=== PATIENT | female | born 1945 | race American Indian/Alaskan Native ===

== ENCOUNTER 2021-01-30 01:57 | Observation (INO) | payer MEDICARE ==
[2021-01-30] MEDS ORDERED: NALOXONE 0.4 MG/1 ML INJ IV PRN (02:06)
[2021-01-30] MEDS ORDERED: LACTATED RINGERS 1,000 ML IV ONE ×3 (02:07→04:10)
--- NOTE | 2021-01-30 02:08 | Emergency Department Report ---
ED General Adult HPI - General Chief complaint: Weakness Stated complaint: AMS PUI?: No Time Seen by Provider: 01/30/21 02:05 Source: patient, family, EMS (Verbal report received from emergency medical services. EMS documentation not available at time of chart dictation ), RN notes reviewed, old records reviewed Mode of arrival: Stretcher Limitations: Altered Mental Status, Physical Limitation - History of Present Illness Initial comments: The patient was evaluated in the emergency department for symptoms described in the history of present illness. He/she was evaluated in the context of the global COVID-19 pandemic, which necessitated consideration that the patient might be at risk for infection with the virus that causes COVID-19. Institutional protocols and algorithms that pertain to the evaluation of patients at risk for COVID-19 are in a state of rapid change based on information released by regulatory bodies including the CDC and federal and state organizations. These policies and algorithms were followed during the patient's care in the emergency department. Please note that these policies, procedures and recommendations changed on a rapid basis. Primary CARE doctor: Dr. Hernández This is a 75-year-old female. She has a known history of abdominal AAA, stroke, hypertension, BMI 33, question dementia. She is brought to the hospital today by emergency medical services. History initially obtained from EMS. EMS states that they were called for possible overdose on narcotics. They report that the patient was found at home, confused, with shallow breathing, and pinpoint pupils. EMS reportedly gave the patient Narcan, which improved her mental status. EMS reports that the patient had low blood pressure in the field. In the emergency room, the patient is awake to name, pleasant, and denies physical pain. Her family endorses that she has been having some diarrhea over the past few days. Family states no recent antibiotic use. Family is in agreement that the patient is confused more so than baseline. The patient herself endorses no complaints, therefore, she does not describe qualitative nature of symptoms, exacerbating factors, relieving factors, or aggravating factors. Patient initially had low blood pressure while here in the emergency room, received almost 3 L of lactated Ringer's, and her blood pressure improved. -: Gradual, days(s) Radiation: other Quality: other Consistency: other Improves with: other Worsens with: other Associated Symptoms: other - Related Data Home Medications Medication Instructions Recorded Confirmed Last Taken Allopurinol 1 tab PO BID 03/01/16 01/30/21 Unknown Cholecalciferol Vit D3 [Vitamin D3 1,000 unit PO QDAY 03/01/16 01/30/21 Unknown 1,000 UNIT TAB] Folic Acid [Folvite] 1 mg PO QDAY 03/01/16 01/30/21 Unknown Losartan [Cozaar] 25 mg PO QDAY 03/01/16 01/30/21 Unknown Metoprolol [Lopressor TAB] 75 mg PO BID 03/01/16 01/30/21 Unknown Simvastatin 1 tab PO QHS 03/01/16 01/30/21 Unknown Spironolactone [Aldactone] 25 mg PO QDAY 03/01/16 01/30/21 Unknown Apixaban [Eliquis] 5 mg PO QDAY 01/30/21 01/30/21 Unknown Furosemide [Lasix TAB] 40 mg PO 2XW 01/30/21 01/30/21 Unknown Pregabalin 200 mg PO QHS 01/30/21 01/30/21 Unknown Terazosin HCl 10 mg PO QHS 01/30/21 01/30/21 Unknown Previous Rx's Medication Instructions Recorded Last Taken Type Albuterol Sulfate [Ventolin HFA] 2 puff IH Q4HR PRN #1 hfa.aer.ad 03/02/16 Unknown Rx Allergies Allergy/AdvReac Type Severity Reaction Status Date / Time Sulfa (Sulfonamide Allergy Nausea Verified 02/29/16 21:57 Antibiotics) ED Review of Systems ROS: Stated complaint: AMS Other details as noted in HPI Comment: All other systems reviewed and negative (Patient denies all complaints.) Constitutional: denies: fever Gastrointestinal: diarrhea Neurological: confusion ED Past Medical Hx - Past Medical History Hx Hypertension: Yes Hx Renal Disease: Yes Hx Asthma: Yes Additional medical history: kidney disease, sciatic nerve pain - Surgical History Additional Surgical History: hysterectomy-1974 - Social History Smoking Status: Never Smoker - Medications Home Medications: Home Medications Medication Instructions Recorded Confirmed Last Taken Type Allopurinol 1 tab PO BID 03/01/16 01/30/21 Unknown History Cholecalciferol Vit D3 [Vitamin D3 1,000 unit PO QDAY 03/01/16 01/30/21 Unknown History 1,000 UNIT TAB] Folic Acid [Folvite] 1 mg PO QDAY 03/01/16 01/30/21 Unknown History Losartan [Cozaar] 25 mg PO QDAY 03/01/16 01/30/21 Unknown History Metoprolol [Lopressor TAB] 75 mg PO BID 03/01/16 01/30/21 Unknown History Simvastatin 1 tab PO QHS 03/01/16 01/30/21 Unknown History Spironolactone [Aldactone] 25 mg PO QDAY 03/01/16 01/30/21 Unknown History Albuterol Sulfate [Ventolin HFA] 2 puff IH Q4HR PRN #1 hfa.aer.ad 03/02/16 Unknown Rx Apixaban [Eliquis] 5 mg PO QDAY 01/30/21 01/30/21 Unknown History Furosemide [Lasix TAB] 40 mg PO 2XW 01/30/21 01/30/21 Unknown History Pregabalin 200 mg PO QHS 01/30/21 01/30/21 Unknown History Terazosin HCl 10 mg PO QHS 01/30/21 01/30/21 Unknown History ED Physical Exam - General Limitations: Other (Dementia, poor historian) General appearance: alert, obese - Head Head exam: Present: atraumatic, normocephalic - Eye Eye exam: Present: normal appearance, EOMI. Absent: nystagmus - ENT ENT exam: Present: normal exam, normal orophraynx, mucous membranes moist, normal external ear exam - Neck Neck exam: Present: normal inspection, full ROM. Absent: tenderness, meningismus - Respiratory Respiratory exam: Present: normal lung sounds bilaterally. Absent: respiratory distress, wheezes, rales, rhonchi, stridor, decreased breath sounds - Cardiovascular Cardiovascular Exam: Present: regular rate, normal rhythm, normal heart sounds. Absent: bradycardia, tachycardia, irregular rhythm, systolic murmur, diastolic murmur, rubs, gallop - GI/Abdominal GI/Abdominal exam: Present: soft. Absent: distended, tenderness, guarding, rebound, rigid, pulsatile mass - Rectal Rectal exam: Present: normal inspection, normal rectal tone, heme (-) stool, other (Chaperoned by nurse Zaira Jean Baptiste). Absent: heme (+) stool, black stool, bloody stool, fecal impaction, hemorrhoids - Extremities Exam Extremities exam: Present: normal inspection, full ROM, other (2+ pulses noted in the bilateral upper and lower extremities. There is no palpable cord. negative Homans sign. Muscular compartments are soft. The pelvis is stable.). Absent: pedal edema, calf tenderness - Back Exam Back exam: Present: normal inspection. Absent: tenderness, CVA tenderness (R), CVA tenderness (L), paraspinal tenderness, vertebral tenderness - Neurological Exam Neurological exam: Present: altered (Patient is alert to name and location. Patient is forgetful.), other (No facial droop. Tongue midline. Extraocular movements intact bilaterally. Facial sensation intact to light touch in V1, V2, V3 distribution bilaterally. 5 and a 5 strength in 4 extremities. Sensation intact to light touch in 4 extremities.) - Psychiatric Psychiatric exam: Present: normal affect, normal mood - Skin Skin exam: Present: warm, dry, intact, normal color. Absent: rash ED Course Vital Signs 01/30/21 01/30/21 01/30/21 02:00 02:06 02:10 Temperature 98 F Pulse Rate 74 Respiratory 12 Rate Blood Pressure 65/39 O2 Sat by Pulse 94 98 93 Oximetry 01/30/21 01/30/21 01/30/21 02:16 02:30 02:46 Temperature Pulse Rate 73 74 74 Respiratory 13 15 14 Rate Blood Pressure 65/39 72/48 77/38 O2 Sat by Pulse 94 96 96 Oximetry 01/30/21 01/30/21 01/30/21 03:26 03:37 03:45 Temperature Pulse Rate 71 70 69 Respiratory 11 L 16 16 Rate Blood Pressure 72/42 77/38 78/54 O2 Sat by Pulse 99 100 98 Oximetry 01/30/21 01/30/21 01/30/21 04:00 04:15 04:30 Temperature Pulse Rate 68 69 68 Respiratory 15 16 14 Rate Blood Pressure 86/54 110/61 101/55 O2 Sat by Pulse 100 99 99 Oximetry ED Medical Decision Making - Lab Data Result diagrams: 01/30/21 02:25 01/30/21 02:25 Vital Signs 01/30/21 01/30/21 01/30/21 02:00 02:06 02:10 Temperature 98 F Pulse Rate 74 Respiratory 12 Rate Blood Pressure 65/39 O2 Sat by Pulse 94 98 93 Oximetry 01/30/21 01/30/21 01/30/21 02:16 02:30 02:46 Temperature Pulse Rate 73 74 74 Respiratory 13 15 14 Rate Blood Pressure 65/39 72/48 77/38 O2 Sat by Pulse 94 96 96 Oximetry 01/30/21 01/30/21 01/30/21 03:26 03:37 03:45 Temperature Pulse Rate 71 70 69 Respiratory 11 L 16 16 Rate Blood Pressure 72/42 77/38 78/54 O2 Sat by Pulse 99 100 98 Oximetry 01/30/21 01/30/21 01/30/21 04:00 04:15 04:30 Temperature Pulse Rate 68 69 68 Respiratory 15 16 14 Rate Blood Pressure 86/54 110/61 101/55 O2 Sat by Pulse 100 99 99 Oximetry Lab Results 01/30/21 01/30/21 01/30/21 Range/Units 02:25 02:25 02:25 WBC 5.6 (4.5-11.0) K/mm3 RBC 3.95 (3.65-5.03) M/mm3 Hgb 12.4 (10.1-14.3) gm/dl Hct 37.8 (30.3-42.9) % MCV 96 (79-97) fl MCH 31 (28-32) pg MCHC 33 (30-34) % RDW 14.1 (13.2-15.2) % Plt Count 177 (140-440) K/mm3 Lymph % (Auto) 56.3 H (13.4-35.0) % [place] % (Auto) 4.9 (0.0-7.3) % Eos % (Auto) 2.0 (0.0-4.3) % Baso % (Auto) 0.1 (0.0-1.8) % Lymph # (Auto) 3.1 (1.2-5.4) K/mm3 [place] # (Auto) 0.3 (0.0-0.8) K/mm3 Eos # (Auto) 0.1 (0.0-0.4) K/mm3 Baso # (Auto) 0.0 (0.0-0.1) K/mm3 Seg Neutrophils % 36.7 L (40.0-70.0) % Seg Neutrophils # 2.0 (1.8-7.7) K/mm3 PT 14.0 (12.2-14.9) Sec. INR 1.10 (0.87-1.13) APTT 26.3 (24.2-36.6) Sec. Sodium 132 L (137-145) mmol/L Potassium 4.9 (3.6-5.0) mmol/L Chloride 101.3 (98-107) mmol/L Carbon Dioxide 23 (22-30) mmol/L Anion Gap 13 mmol/L BUN 41 H (7-17) mg/dL Creatinine 2.5 H (0.6-1.2) mg/dL Estimated GFR 23 ml/min BUN/Creatinine Ratio 16 % Glucose 151 H (65-100) mg/dL Lactic Acid (0.7-2.0) mmol/L Calcium 8.7 (8.4-10.2) mg/dL Total Bilirubin 0.40 (0.1-1.2) mg/dL AST 20 (5-40) units/L ALT 20 (7-56) units/L Alkaline Phosphatase 79 (35-129) units/L Ammonia (25-60) umol/L Total Creatine Kinase 132 (30-135) units/L Troponin T < 0.010 (0.00-0.029) ng/mL Total Protein 8.8 H (6.3-8.2) g/dL Albumin 3.6 L (3.9-5) g/dL Albumin/Globulin Ratio 0.7 % TSH (0.270-4.200) mlU/mL Urine Color (Yellow) Urine Turbidity (Clear) Urine pH (5.0-7.0) Ur Specific [place] (1.003-1.030) Urine Protein (Negative) mg/dL Urine Glucose (UA) (Negative) mg/dL Urine Ketones (Negative) mg/dL Urine Blood (Negative) Urine Nitrite (Negative) Urine Bilirubin (Negative) Urine Urobilinogen (<2.0) mg/dL Ur Leukocyte Esterase (Negative) Urine WBC (Auto) (0.0-6.0) /HPF Urine RBC (Auto) (0.0-6.0) /HPF U Epithel Cells (Auto) (0-13.0) /HPF Urine WBC Clumps /HPF Urine Mucus /HPF Salicylates (2.8-20.0) mg/dL Urine Opiates Screen Urine Methadone Screen Acetaminophen (10.0-30.0) ug/mL Ur Barbiturates Screen Ur Phencyclidine Scrn Ur Amphetamines Screen U Benzodiazepines Scrn Urine Cocaine Screen U Marijuana (THC) Screen Drugs of Abuse Note Plasma/Serum Alcohol (0-0.07) % 01/30/21 01/30/21 01/30/21 Range/Units 02:25 02:25 02:25 WBC (4.5-11.0) K/mm3 RBC (3.65-5.03) M/mm3 Hgb (10.1-14.3) gm/dl Hct (30.3-42.9) % MCV (79-97) fl MCH (28-32) pg MCHC (30-34) % RDW (13.2-15.2) % Plt Count (140-440) K/mm3 Lymph % (Auto) (13.4-35.0) % [place] % (Auto) (0.0-7.3) % Eos % (Auto) (0.0-4.3) % Baso % (Auto) (0.0-1.8) % Lymph # (Auto) (1.2-5.4) K/mm3 [place] # (Auto) (0.0-0.8) K/mm3 Eos # (Auto) (0.0-0.4) K/mm3 Baso # (Auto) (0.0-0.1) K/mm3 Seg Neutrophils % (40.0-70.0) % Seg Neutrophils # (1.8-7.7) K/mm3 PT (12.2-14.9) Sec. INR (0.87-1.13) APTT (24.2-36.6) Sec. Sodium (137-145) mmol/L Potassium (3.6-5.0) mmol/L Chloride (98-107) mmol/L Carbon Dioxide (22-30) mmol/L Anion Gap mmol/L BUN (7-17) mg/dL Creatinine (0.6-1.2) mg/dL Estimated GFR ml/min BUN/Creatinine Ratio % Glucose (65-100) mg/dL Lactic Acid 1.80 (0.7-2.0) mmol/L Calcium (8.4-10.2) mg/dL Total Bilirubin (0.1-1.2) mg/dL AST (5-40) units/L ALT (7-56) units/L Alkaline Phosphatase (35-129) units/L Ammonia 21.0 L (25-60) umol/L Total Creatine Kinase (30-135) units/L Troponin T (0.00-0.029) ng/mL Total Protein (6.3-8.2) g/dL Albumin (3.9-5) g/dL Albumin/Globulin Ratio % TSH 2.590 (0.270-4.200) mlU/mL Urine Color (Yellow) Urine Turbidity (Clear) Urine pH (5.0-7.0) Ur Specific [place] (1.003-1.030) Urine Protein (Negative) mg/dL Urine Glucose (UA) (Negative) mg/dL Urine Ketones (Negative) mg/dL Urine Blood (Negative) Urine Nitrite (Negative) Urine Bilirubin (Negative) Urine Urobilinogen (<2.0) mg/dL Ur Leukocyte Esterase (Negative) Urine WBC (Auto) (0.0-6.0) /HPF Urine RBC (Auto) (0.0-6.0) /HPF U Epithel Cells (Auto) (0-13.0) /HPF Urine WBC Clumps /HPF Urine Mucus /HPF Salicylates (2.8-20.0) mg/dL Urine Opiates Screen Urine Methadone Screen Acetaminophen (10.0-30.0) ug/mL Ur Barbiturates Screen Ur Phencyclidine Scrn Ur Amphetamines Screen U Benzodiazepines Scrn Urine Cocaine Screen U Marijuana (THC) Screen Drugs of Abuse Note Plasma/Serum Alcohol (0-0.07) % 01/30/21 01/30/21 01/30/21 Range/Units 02:25 02:25 02:25 WBC (4.5-11.0) K/mm3 RBC (3.65-5.03) M/mm3 Hgb (10.1-14.3) gm/dl Hct (30.3-42.9) % MCV (79-97) fl MCH (28-32) pg MCHC (30-34) % RDW (13.2-15.2) % Plt Count (140-440) K/mm3 Lymph % (Auto) (13.4-35.0) % [place] % (Auto) (0.0-7.3) % Eos % (Auto) (0.0-4.3) % Baso % (Auto) (0.0-1.8) % Lymph # (Auto) (1.2-5.4) K/mm3 [place] # (Auto) (0.0-0.8) K/mm3 Eos # (Auto) (0.0-0.4) K/mm3 Baso # (Auto) (0.0-0.1) K/mm3 Seg Neutrophils % (40.0-70.0) % Seg Neutrophils # (1.8-7.7) K/mm3 PT (12.2-14.9) Sec. INR (0.87-1.13) APTT (24.2-36.6) Sec. Sodium (137-145) mmol/L Potassium (3.6-5.0) mmol/L Chloride (98-107) mmol/L Carbon Dioxide (22-30) mmol/L Anion Gap mmol/L BUN (7-17) mg/dL Creatinine (0.6-1.2) mg/dL Estimated GFR ml/min BUN/Creatinine Ratio % Glucose (65-100) mg/dL Lactic Acid (0.7-2.0) mmol/L Calcium (8.4-10.2) mg/dL Total Bilirubin (0.1-1.2) mg/dL AST (5-40) units/L ALT (7-56) units/L Alkaline Phosphatase (35-129) units/L Ammonia (25-60) umol/L Total Creatine Kinase (30-135) units/L Troponin T (0.00-0.029) ng/mL Total Protein (6.3-8.2) g/dL Albumin (3.9-5) g/dL Albumin/Globulin Ratio % TSH (0.270-4.200) mlU/mL Urine Color (Yellow) Urine Turbidity (Clear) Urine pH (5.0-7.0) Ur Specific [place] (1.003-1.030) Urine Protein (Negative) mg/dL Urine Glucose (UA) (Negative) mg/dL Urine Ketones (Negative) mg/dL Urine Blood (Negative) Urine Nitrite (Negative) Urine Bilirubin (Negative) Urine Urobilinogen (<2.0) mg/dL Ur Leukocyte Esterase (Negative) Urine WBC (Auto) (0.0-6.0) /HPF Urine RBC (Auto) (0.0-6.0) /HPF U Epithel Cells (Auto) (0-13.0) /HPF Urine WBC Clumps /HPF Urine Mucus /HPF Salicylates < 0.3 L (2.8-20.0) mg/dL Urine Opiates Screen Urine Methadone Screen Acetaminophen 5.0 L (10.0-30.0) ug/mL Ur Barbiturates Screen Ur Phencyclidine Scrn Ur Amphetamines Screen U Benzodiazepines Scrn Urine Cocaine Screen U Marijuana (THC) Screen Drugs of Abuse Note Plasma/Serum Alcohol < 0.01 (0-0.07) % 01/30/21 01/30/21 Range/Units 04:15 04:15 WBC (4.5-11.0) K/mm3 RBC (3.65-5.03) M/mm3 Hgb (10.1-14.3) gm/dl Hct (30.3-42.9) % MCV (79-97) fl MCH (28-32) pg MCHC (30-34) % RDW (13.2-15.2) % Plt Count (140-440) K/mm3 Lymph % (Auto) (13.4-35.0) % [place] % (Auto) (0.0-7.3) % Eos % (Auto) (0.0-4.3) % Baso % (Auto) (0.0-1.8) % Lymph # (Auto) (1.2-5.4) K/mm3 [place] # (Auto) (0.0-0.8) K/mm3 Eos # (Auto) (0.0-0.4) K/mm3 Baso # (Auto) (0.0-0.1) K/mm3 Seg Neutrophils % (40.0-70.0) % Seg Neutrophils # (1.8-7.7) K/mm3 PT (12.2-14.9) Sec. INR (0.87-1.13) APTT (24.2-36.6) Sec. Sodium (137-145) mmol/L Potassium (3.6-5.0) mmol/L Chloride (98-107) mmol/L Carbon Dioxide (22-30) mmol/L Anion Gap mmol/L BUN (7-17) mg/dL Creatinine (0.6-1.2) mg/dL Estimated GFR ml/min BUN/Creatinine Ratio % Glucose (65-100) mg/dL Lactic Acid (0.7-2.0) mmol/L Calcium (8.4-10.2) mg/dL Total Bilirubin (0.1-1.2) mg/dL AST (5-40) units/L ALT (7-56) units/L Alkaline Phosphatase (35-129) units/L Ammonia (25-60) umol/L Total Creatine Kinase (30-135) units/L Troponin T (0.00-0.029) ng/mL Total Protein (6.3-8.2) g/dL Albumin (3.9-5) g/dL Albumin/Globulin Ratio % TSH (0.270-4.200) mlU/mL Urine Color Yellow (Yellow) Urine Turbidity Turbid (Clear) Urine pH 5.0 (5.0-7.0) Ur Specific [place] 1.016 (1.003-1.030) Urine Protein <15 mg/dl (Negative) mg/dL Urine Glucose (UA) Neg (Negative) mg/dL Urine Ketones Neg (Negative) mg/dL Urine Blood Neg (Negative) Urine Nitrite Neg (Negative) Urine Bilirubin Neg (Negative) Urine Urobilinogen < 2.0 (<2.0) mg/dL Ur Leukocyte Esterase Neg (Negative) Urine WBC (Auto) 43.0 H (0.0-6.0) /HPF Urine RBC (Auto) > 182.0 (0.0-6.0) /HPF U Epithel Cells (Auto) 29.0 H (0-13.0) /HPF Urine WBC Clumps 2+ /HPF Urine Mucus Few /HPF Salicylates (2.8-20.0) mg/dL Urine Opiates Screen Negative Urine Methadone Screen Negative Acetaminophen (10.0-30.0) ug/mL Ur Barbiturates Screen Negative Ur Phencyclidine Scrn Negative Ur Amphetamines Screen Negative U Benzodiazepines Scrn Negative Urine Cocaine Screen Negative U Marijuana (THC) Screen Negative Drugs of Abuse Note Disclamer Plasma/Serum Alcohol (0-0.07) % - EKG Data -: EKG Interpreted by [place] EKG shows normal: sinus rhythm Rate: normal - EKG Data 01/30/21 05:19 EKG interpreted at 2: 19 Sinus rhythm, 73 bpm. Normal axis, QTC 467 ms, Q waves noted in the inferior leads. This is an abnormal EKG. This is not a STEMI. No prior for comparison at this time. - Radiology Data Radiology results: report reviewed, image reviewed [facility] [address] [place] [address] Cat Scan Report Signed Patient: REYNALDO WILLIS MR#: [id number] : 1945 Acct:[id number] Age/Sex: 75 / F ADM Date: 01/30/21 Loc: ED Attending Dr: Kaylie ramos Physician: AMADA MARTINES MD Date of Service: 01/30/21 Procedure(s): CT head/brain wo con Accession Number(s): [id number] cc: AMADA MARTINES MD CT HEAD WITHOUT CONTRAST INDICATION / CLINICAL INFORMATION: Altered Mental Status. TECHNIQUE: All CT scans at this location are performed using CT dose reduction for ALARA by means of automated exposure control. COMPARISON: None available. FINDINGS: HEMORRHAGE: None. EXTRA-AXIAL SPACES: Mildly prominent likely related to cortical atrophy. VENTRICULAR SYSTEM: Mildly enlarged likely related to central atrophy. CEREBRAL PARENCHYMA: Mild small vessel ischemic changes in the right gangliocapsular region are of uncertain age. No evidence of major vessel occlusion. MIDLINE SHIFT / HERNIATION: None. CEREBELLUM / BRAINSTEM: No significant abnormality. ORBITS: Normal as visualized. SOFT TISSUES: No significant abnormality. SKULL: No significant abnormality. PARANASAL SINUSES / MASTOID AIR CELLS: Normal as visualized. ADDITIONAL FINDINGS: None. IMPRESSION: Mild small vessel ischemic changes in the right gangliocapsular region are of uncertain age. Signer Name: Huber Ellington MD Signed: 01/30/2021 3:22 AM Workstation Name: [id number] Transcribed By: RT Dictated By: Huber Ellington MD Electronically Authenticated By: Huber Ellington MD Signed Date/Time: 01/30/21321 DD/ 9 [facility] [address] [place] [address] Cat Scan Report Signed Patient: REYNALDO WILLIS MR#: [id number] : 1945 Acct:[id number] Age/Sex: 75 / F ADM Date: 01/30/21 Loc: ED Attending Dr: Ordering Physician: AMADA MARTINES MD Date of Service: 01/30/21 Procedure(s): CT abdomen pelvis wo con Accession Number(s): [id number] cc: AMADA MARTINES MD CT OF THE ABDOMEN AND PELVIS WITHOUT CONTRAST INDICATION / CLINICAL INFORMATION: Hypotension; Possible AAA vs Retroperitoneal Hematoma. TECHNIQUE: All CT scans at this location are performed using CT dose reduction for ALARA by means of automated exposure control. COMPARISON: None available. FINDINGS: ABDOMEN: There are moderate atherosclerotic calcifications involving the abdominal aorta. There is a 3.3 cm infrarenal AAA without acute complication. I see no evidence of retroperitoneal hematoma. There is benign-appearing low density nodularity/hyperplasia involving both adrenal glands. The liver, spleen, gallbla dder, bile ducts, pancreas, kidneys and bowel demonstrate no acute abnormality. There is a 2.9 cm spiculated mass in the posterior aspect of the left lower lobe of the lung which abuts the pleura. PELVIS: There is a Bashir catheter in a collapsed urinary bladder. The distal ureters are normal. The uterus and ovaries are not identified. There are multiple left colonic diverticula without acute inflammation. A normal appendix is present. I do not identify a hernia. There are moderate degenerative changes at the lumbosacral junction. IMPRESSION: 1. 3.3 cm infrarenal AAA without acute complication. No evidence of retroperitoneal hematoma. 2. Diverticulosis without CT evidence of acute diverticulitis. 3. 2.9 cm spiculated mass in the left lower lobe is characteristic of primary bronchogenic carcinoma. PET imaging/biopsy may be helpful in further evaluation. Signer Name: Huber Ellington MD Signed: 01/30/2021 3:32 AM Workstation Name: [id number] Transcribed By: RT Dictated By: Huber Ellington MD Electronically Authenticated By: Huber Ellington MD Signed Date/Time: 01/30/21331 DD/ 5 [facility] [address] [place] [address] XRay Report Signed Patient: REYNALDO WILLIS MR#: [id number] : 1945 Acct:[id number] Age/Sex: 75 / F ADM Date: 01/30/21 Loc: ED Attending Dr: Ordering Physician: AMADA MARTINES MD Date of Service: 01/30/21 Procedure(s): XR chest 1V ap Accession Number(s): [id number] cc: AMADA MARTINES MD Fluoro Time In Minutes: CHEST 1 VIEW 01/30/2021 1:35 AM INDICATION / CLINICAL INFORMATION: Altered Mental Status. COMPARISON: None available. FINDINGS: SUPPORT DEVICES: None. HEART / MEDIASTINUM: The heart size and pulmonary vasculature are normal. There is mild aortic tortuosity without aneurysm. LUNGS / PLEURA: No significant pulmonary or pleural abnormality. No pneumothorax. ADDITIONAL FINDINGS: No significant additional findings. IMPRESSION: No acute findings. Signer Name: Huber Ellington MD Signed: 01/30/2021 2:37 AM Workstation Name: [id number] Transcribed By: RT Dictated By: Huber Ellington MD Electronically Authenticated By: Huber Ellington MD Signed Date/T chong: 01/30/21 0237 - Medical Decision Making Differential diagnosis, including but not limited to: Urinary tract infection, pneumonia, dehydration, renal insufficiency, prerenal azotemia, known AAA, retroperitoneal hemorrhage, intracranial hemorrhage, stroke, dementia, deconditioning, toxic encephalopathy, metabolic encephalopathy, deconditioning Assessment and plan: 75-year-old female who was initially hypotensive, awake to name, follows commands, protecting her airway, in no acute distress, not hypoxic, found to have renal insufficiency. Given hypotension, Bashir catheter was placed for urine output measurement. She will be treated empirically with fluids and ceftriaxone. I have contacted her family, and they are amenable to admission and hospitalization. A noncontrast CT scan of the abdomen pelvis showed no acute findings. She has a known chronic AAA. Incidental lung abnormality reviewed and appreciated, not emergent, we will defer to the inpatient team to further manage and follow-up of incidental nonemergent findings. Family amenable to admission and hospitalization. Hospital physician, Dr. Omid Martins to admit Critical Care Time: No Critical care attestation.: If time is entered above; I have spent that time in minutes in the direct care of this critically ill patient, excluding procedure time. ED Disposition Clinical Impression: NAZ (acute kidney injury), Acute encephalopathy, Weakness, History of diarrhea, UTI (urinary tract infection), Dementia, AAA (abdominal aortic aneurysm) Hypotension Qualifiers: Hypotension type: unspecified hypotension type Qualified Code(s): I95.9 - Hypotension, unspecified Disposition: OP ADMIT IP TO THIS HOSP Is pt being admited?: Yes Does the pt Need Aspirin: No Condition: Fair Referrals: PRIMARY CARE, [Referring] - 3-5 Days
--- NOTE | 2021-01-30 02:42 | XRay Report ---
CHEST 1 VIEW 01/30/2021 1:35 AM INDICATION / CLINICAL INFORMATION: Altered Mental Status. COMPARISON: None available. FINDINGS: SUPPORT DEVICES: None. HEART / MEDIASTINUM: The heart size and pulmonary vasculature are normal. There is mild aortic tortuo sity without aneurysm. LUNGS / PLEURA: No significant pulmonary or pleural abnormality. No pneumothorax. ADDITIONAL FINDINGS: No significant additional findings. IMPRESSION: No acute findings. Signer Name: Huber Ellington MD Signed: 01/30/2021 2:37 AM Workstation Name: [id number]
--- NOTE | 2021-01-30 03:26 | Cat Scan Report ---
CT HEAD WITHOUT CONTRAST INDICATION / CLINICAL INFORMATION: Altered Mental Status. TECHNIQUE: All CT scans at this location are performed using CT dose reduction for ALARA by means of automated exposure control. COMPARISON: None available. FINDINGS: HEMORRHAGE: None. EXTRA-AXIAL SPACES: Mildly prominent likely related to cortical atrophy. VENTRICULAR SYSTEM: Mildly enlarged likely related to central atrophy. CEREBRAL PARENCHYMA: Mild small vessel ischemic changes in the right gangliocapsular region are of un certain age. No evidence of major vessel occlusion. MIDLINE SHIFT / HERNIATION: None. CEREBELLUM / BRAINSTEM: No significant abnormality. ORBITS: Normal as visualized. SOFT TISSUES: No significant abnormality. SKULL: No significant abnormality. PARANASAL SINUSES / MASTOID AIR CELLS: Normal as visualized. ADDITIONAL FINDINGS: None. IMPRESSION: Mild small vessel ischemic changes in the right gangliocapsular region are of uncertain a ge. Signer Name: Huber Ellington MD Signed: 01/30/2021 3:22 AM Workstation Name: [id number]
[2021-01-30 03:27] LABS: Hematocrit 37.8 % (30.3-42.9); Hemoglobin 12.4 gm/dl (10.1-14.3); Mean Corpuscular HGB Conc 33 % (30-34); Mean Corpuscular Volume 96 fl (79-97); Platelet Count 177 K/mm3 (140-440); Red Blood Count 3.95 M/mm3 (3.65-5.03); Red Cell Distribution Width 14.1 % (13.2-15.2)
--- NOTE | 2021-01-30 03:36 | Cat Scan Report ---
CT OF THE ABDOMEN AND PELVIS WITHOUT CONTRAST INDICATION / CLINICAL INFORMATION: Hypotension; Possible AAA vs Retroperitoneal Hematoma. TECHNIQUE: All CT scans at this location are performed using CT dose reduction for ALARA by means of automated exposure control. COMPARISON: None available. FINDINGS: ABDOMEN: There are moderate atherosclerotic calcifications involving the abdominal aorta. There is a 3.3 cm infrarenal AAA without acute complication. I see no evidence of retroperitoneal hematoma. There is benign-appearing low density nodularity/hyperplasia involving both adrenal glands. The liver , spleen, gallbladder, bile ducts, pancreas, kidneys and bowel demonstrate no acute abnormality. There is a 2.9 cm spiculated mass in the posterior aspect of the left lower lobe of the lung which ab uts the pleura. PELVIS: There is a Bashir catheter in a collapsed urinary bladder. The distal ureters are normal. The uterus and ovaries are not identified. There are multiple left colonic diverticula without acute infl ammation. A normal appendix is present. I do not identify a hernia. There are moderate degenerative c hanges at the lumbosacral junction. IMPRESSION: 1. 3.3 cm infrarenal AAA without acute complication. No evidence of retroperitoneal hematoma. 2. Diverticulosis without CT evidence of acute diverticulitis. 3. 2.9 cm spiculated mass in the left lower lobe is characteristic of primary bronchogenic carcinoma. PET imaging/biopsy may be helpful in further evaluation. Signer Name: Huber Ellington MD Signed: 01/30/2021 3:32 AM Workstation Name: [id number]
[2021-01-30 03:40] LABS: INR 1.1 (0.87-1.13); Partial Thromboplastin Time 26.3 Sec. (24.2-36.6)
[2021-01-30 03:44] LABS: Basophils % (Auto) 0.1 % (0.0-1.8); Lymphocytes % (Auto) 56.3 % (13.4-35.0); Monocytes % (Auto) 4.9 % (0.0-7.3)
[2021-01-30 03:45] LABS: Eosinophils # (Auto) 0.1 K/mm3 (0.0-0.4); Lymphocytes # (Auto) 3.1 K/mm3 (1.2-5.4); Monocytes # (Auto) 0.3 K/mm3 (0.0-0.8)
[2021-01-30 04:34] LABS: Amphetamine Screen,Urine Negative; Benzodiazepines Screen,Urine Negative; Bilirubin,Urine NEG (Negative); Blood,Urine NEG (Negative); Cannabinoid Screen,Urine Negative; Cocaine Screen,Urine Negative; Color,Urine Yellow (Yellow); Methadone Screen,Urine Negative; Mucus,Urine FEW /HPF; Opiate Screen,Urine Negative; Protein,Urine <15 mg/dL mg/dL (Negative); Urobilinogen,Urine < 2.0 mg/dL (<2.0)
[2021-01-30 04:36] LABS: RBC,Urine > 182.0 /HPF (0.0-6.0)
[2021-01-30 04:38] LABS: Alanine Aminotransferase 20 units/L (7-56); Albumin 3.6 g/dL (3.9-5); BUN/Creatinine Ratio 16; Blood Urea Nitrogen 41 mg/dL (7-17); Calcium 8.7 mg/dL (8.4-10.2); Hemolysis Index 1
[2021-01-30] MEDS ORDERED: cefTRIAXone/NS 1 GM/50 ML 1 GM/50 ML BAG IV ONE (04:52)
[2021-01-30] MEDS ORDERED: ASPIRIN 81 MG TAB CHEW PO ONE (05:16)
[2021-01-30] MEDS ORDERED: ACETAMINOPHEN 325 MG TAB PO PRN (05:56)
[2021-01-30] MEDS ORDERED: MORPHINE 2 MG/1 ML INJ IV PRN (05:56)
[2021-01-30] MEDS ORDERED: ONDANSETRON 4 MG/2 ML INJ IV PRN (05:56)
[2021-01-30] MEDS ORDERED: MAGNESIUM HYDROXIDE (MOM) ORAL LIQD UDC PO PRN (05:56)
--- NOTE | 2021-01-30 06:17 | History and Physical Report ---
History of Present Illness Date of examination: 01/30/21 Date of admission: 01/30/21 05:22 Chief complaint: Altered mental status History of present illness: 75-year-old -Bul[place]ian female with known history of hypertension, dementia and history of CVA in the past was brought into the emergency room by EMS for altered mental status. Patient's family was said to have called EMS because the thought patient may have overdosed on narcotic medication. Patient was given Narcan by EMS with some improvement in her mental status. She however had some low blood pressure prior to being brought to the hospital. According to family, patient has been having diarrhea over the past few days.. No history of fever or chills, no chest pain, no shortness of breath, no nausea vomiting and no abdominal pain. No hematuria or dysuria. No history of any sick contacts or recent travel. No history of contact with anyone with COVID-19. Patient denies any recent intake of antibiotics. She became more alert upon arrival in the emergency room. Work-up in the emergency room reveals urinary tract infection, acute kidney injury. Past History Past Medical History: hypertension, renal failure (Chronic kidney failure), other (Asthma, sciatic nerve pain) Past Surgical History: hysterectomy (In 1974) Social history: no significant social history Family history: no significant family history Medications and Allergies Allergies Allergy/AdvReac Type Severity Reaction Status Date / Time Sulfa (Sulfonamide Allergy Nausea Verified 02/29/16 21:57 Antibiotics) Home Medications Medication Instructions Recorded Confirmed Last Taken Type Allopurinol 1 tab PO BID 03/01/16 01/30/21 Unknown History Cholecalciferol Vit D3 [Vitamin D3 1,000 unit PO QDAY 03/01/16 01/30/21 Unknown History 1,000 UNIT TAB] Folic Acid [Folvite] 1 mg PO QDAY 03/01/16 01/30/21 Unknown History Losartan [Cozaar] 25 mg PO QDAY 03/01/16 01/30/21 Unknown History Metoprolol [Lopressor TAB] 75 mg PO BID 03/01/16 01/30/21 Unknown History Simvastatin 1 tab PO QHS 03/01/16 01/30/21 Unknown History Spironolactone [Aldactone] 25 mg PO QDAY 03/01/16 01/30/21 Unknown History Albuterol Sulfate [Ventolin HFA] 2 puff IH Q4HR PRN #1 hfa.aer.ad 03/02/16 Unknown Rx Apixaban [Eliquis] 5 mg PO QDAY 01/30/21 01/30/21 Unknown History Furosemide [Lasix TAB] 40 mg PO 2XW 01/30/21 01/30/21 Unknown History Pregabalin 200 mg PO QHS 01/30/21 01/30/21 Unknown History Terazosin HCl 10 mg PO QHS 01/30/21 01/30/21 Unknown History Active Meds: Active Medications Acetaminophen (Acetaminophen 325 Mg Tab) 650 mg PO Q4H PRN PRN Reason: Pain MILD(1-3)/Fever >100.5/DOWNS Naloxone HCl (Naloxone 0.4 Mg/1 Ml Inj) 0.1 mg IV Q2MIN PRN PRN Reason: Res Rate </= 8 or 02 SAT < 92% Ondansetron HCl (Ondansetron 4 Mg/2 Ml Inj) 4 mg IV Q8H PRN PRN Reason: Nausea And Vomiting Sodium Chloride (Sodium Chloride 0.9% 10 Ml Flush Syringe) 10 ml IV BID TERRI Sodium Chloride (Sodium Chloride 0.9% 10 Ml Flush Syringe) 10 ml IV PRN PRN PRN Reason: LINE FLUSH Review of Systems Constitutional: weakness, lethargy, no fever, no chills Ears, nose, mouth and throat: no nasal congestion, no sore throat Cardiovascular: no chest pain, no palpitations Respiratory: no cough, no shortness of breath Gastrointestinal: no abdominal pain, no nausea, no vomiting, no diarrhea Genitourinary Female: no pelvic pain, no flank pain, no dysuria, no hematuria Musculoskeletal: no neck pain, no low back pain Integumentary: no rash, no pruritis Neurological: no headaches, no confusion Psychiatric: no anxiety, no depression Endocrine: no polydipsia, no polyuria, no nocturia Exam - Constitutional Vitals: Temp Pulse Resp BP Pulse Ox 98 F 63 14 113/62 99 01/30/21 02:00 01/30/21 05:15 01/30/21 05:15 01/30/21 05:15 01/30/21 05:15 General appearance: Present: no acute distress, well-nourished, obese - EENT Eyes: Present: PERRL, EOM intact. Absent: scleral icterus ENT: hearing intact, clear oral mucosa, dentition normal - Neck Neck: Present: supple, normal ROM - Respiratory Respiratory effort: normal Respiratory: bilateral: CTA - Cardiovascular Rhythm: regular Heart Sounds: Present: S1 & S2 - Extremities Extremities: no ischemia, pulses intact, pulses symmetrical, No edema, normal temperature, normal color, Full ROM Peripheral Pulses: within normal limits - Abdominal General gastrointestinal: Present: soft, non-tender, non-distended, normal bowel sounds. Absent: mass - Integumentary Integumentary: Present: clear, warm, dry. Absent: rash - Musculoskeletal Musculoskeletal: strength equal bilaterally - Psychiatric Psychiatric: appropriate mood/affect, intact judgment & insight, memory intact, cooperative - Neurologic Neurologic: CNII-XII intact, no focal deficits, moves all extremities HEART Score - HEART Score Troponin: Troponin T < 0.010 ng/mL (0.00-0.029) 01/30/21 02:25 Results - Labs CBC & Chem 7: 01/30/21 02:25 01/30/21 02:25 Labs: Abnormal lab results 01/30/21 01/30/21 01/30/21 Range/Units 02:25 02:25 02:25 Lymph % (Auto) 56.3 H (13.4-35.0) % Seg Neutrophils % 36.7 L (40.0-70.0) % Sodium 132 L (137-145) mmol/L BUN 41 H (7-17) mg/dL Creatinine 2.5 H (0.6-1.2) mg/dL Glucose 151 H (65-100) mg/dL Ammonia 21.0 L (25-60) umol/L Total Protein 8.8 H (6.3-8.2) g/dL Albumin 3.6 L (3.9-5) g/dL Urine WBC (Auto) (0.0-6.0) /HPF U Epithel Cells (Auto) (0-13.0) /HPF Salicylates (2.8-20.0) mg/dL Acetaminophen (10.0-30.0) ug/mL 01/30/21 01/30/21 01/30/21 Range/Units 02:25 02:25 04:15 Lymph % (Auto) (13.4-35.0) % Seg Neutrophils % (40.0-70.0) % Sodium (137-145) mmol/L BUN (7-17) mg/dL Creatinine (0.6-1.2) mg/dL Glucose (65-100) mg/dL Ammonia (25-60) umol/L Total Protein (6.3-8.2) g/dL Albumin (3.9-5) g/dL Urine WBC (Auto) 43.0 H (0.0-6.0) /HPF U Epithel Cells (Auto) 29.0 H (0-13.0) /HPF Salicylates < 0.3 L (2.8-20.0) mg/dL Acetaminophen 5.0 L (10.0-30.0) ug/mL Assessment and Plan - Patient Problems (1) Acute encephalopathy Current Visit: Yes Status: Acute Plan to address problem: Possibly secondary to underlying infection. Patient has been commenced on empiric IV antibiotics. Will monitor mental status. (2) NAZ (acute kidney injury) Current Visit: Yes Status: Acute Plan to address problem: Patient placed on IV fluid. Will monitor BUN and creatinine. (3) UTI (urinary tract infection) Current Visit: Yes Status: Acute Plan to address problem: Patient placed on empiric IV antibiotics. We will await urine culture result. (4) Dementia Current Visit: Yes Status: Acute Plan to address problem: Will resume routine home medications. (5) DVT prophylaxis Current Visit: Yes Status: Acute Plan to address problem: Patient placed on subcutaneous heparin. (6) Full code status Current Visit: Yes Status: Acute Plan to address problem: Patient is full code.
[2021-01-30] MEDS: HEPARIN 5,000 UNIT/1 ML VIAL SUB-Q SCH ×3 (06:49→22:25)
[2021-01-30] MEDS: SODIUM CHLORIDE 0.9% 1000 ML 1,000 ML IV SCH ×3 (06:50→22:25)
--- NOTE | 2021-01-30 17:43 | Event Note ---
Date: 01/30/21 This is the second visit after midnight patient seen and examined 75-year-old -Japanese female with known history of hypertension, dementia and history of CVA in the past was brought into the emergency room by EMS for altered mental status Work-up in the emergency room reveals urinary tract infection, acute kidney injury. Continue IV antibiotics, follow urine culture, continue IV fluid, follow BMP. Consult nephrology if renal function worsening Continue current management and plan as dictated in HPI
--- NOTE | 2021-01-30 18:34 | Consultation ---
History of Present Illness - Reason for Consult Consult date: 01/30/21 acute renal failure Requesting physician: CHRIS CERVANTES - History of Present Illness 75-year-old lady with a history of hypertension, chronic kidney disease stage III history of CVA August 2020 presents on account of diarrhea with abdominal pain and vomiting of 3 days duration and then confusion. Per EMS, patient had shallow shallow breathing, pinpoint pupils and was given Narcan for presumed narcotic overdose. Patient responded with improved mental status. On evaluation in the ER, blood pressure was 65/39 mmHg. BUN/creatinine were elevated at 41/2.5 milligrams per deciliter and I am consulted to assist with managing this. Patient is a poor historian due to her memory impairment since she had a stroke she states. She does not recall most of the events of yesterday but she does remember that she was having diarrhea. 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 Lives with her , daughter and grandchildren). denies: smoking (Quit smoking about 10 years ago), prescription drug abuse, IV drug use Family history: cancer (She does recall her father had cancer but not sure what type) Medications and Allergies Allergies Allergy/AdvReac Type Severity Reaction Status Date / Time Sulfa (Sulfonamide Allergy Nausea Verified 02/29/16 21:57 Antibiotics) Home Medications Medication Instructions Recorded Confirmed Last Taken Type Allopurinol 1 tab PO BID 03/01/16 01/30/21 Unknown History Cholecalciferol Vit D3 [Vitamin D3 1,000 unit PO QDAY 03/01/16 01/30/21 Unknown History 1,000 UNIT TAB] Folic Acid [Folvite] 1 mg PO QDAY 03/01/16 01/30/21 Unknown History Losartan [Cozaar] 25 mg PO QDAY 03/01/16 01/30/21 Unknown History Metoprolol [Lopressor TAB] 75 mg PO BID 03/01/16 01/30/21 Unknown History Simvastatin 1 tab PO QHS 03/01/16 01/30/21 Unknown History Spironolactone [Aldactone] 25 mg PO QDAY 03/01/16 01/30/21 Unknown History Albuterol Sulfate [Ventolin HFA] 2 puff IH Q4HR PRN #1 hfa.aer.ad 03/02/16 01/30/21 Unknown Rx Apixaban [Eliquis] 5 mg PO QDAY 01/30/21 01/30/21 Unknown History Furosemide [Lasix TAB] 40 mg PO 2XW 01/30/21 01/30/21 Unknown History Pregabalin 200 mg PO QHS 01/30/21 01/30/21 Unknown History Terazosin HCl 10 mg PO QHS 01/30/21 01/30/21 Unknown History Active Meds: Active Medications Acetaminophen (Acetaminophen 325 Mg Tab) 650 mg PO Q4H PRN PRN Reason: Pain MILD(1-3)/Fever >100.5/DOWNS Heparin Sodium (Porcine) (Heparin 5,000 Unit/1 Ml Vial) 5,000 unit SUB-Q Q8HR TERIR Last Admin: 01/30/21 13:54 Dose: 5,000 unit Documented by: Sodium Chloride (Nacl 0.9% 1000 Ml) 1,000 mls @ 125 mls/hr IV DIRECT TERRI Last Admin: 01/30/21 15:44 Dose: 125 mls/hr Documented by: Ceftriaxone Sodium (Rocephin/Ns 1 Gm/50 Ml) 1 gm in 50 mls @ 100 mls/hr IV Q24H TERRI; Protocol Magnesium Hydroxide (Magnesium Hydroxide (Mom) Oral Liqd Udc) 30 ml PO Q4H PRN PRN Reason: Constipation Morphine Sulfate (Morphine 2 Mg/1 Ml Inj) 2 mg IV Q4H PRN PRN Reason: Pain, Moderate (4-6) Naloxone HCl (Naloxone 0.4 Mg/1 Ml Inj) 0.1 mg IV Q2MIN PRN PRN Reason: Res Rate </= 8 or 02 SAT < 92% Ondansetron HCl (Ondansetron 4 Mg/2 Ml Inj) 4 mg IV Q8H PRN PRN Reason: Nausea And Vomiting Sodium Chloride (Sodium Chloride 0.9% 10 Ml Flush Syringe) 10 ml IV BID TERRI Last Admin: 01/30/21 11:23 Dose: 10 ml Documented by: Sodium Chloride (Sodium Chloride 0.9% 10 Ml Flush Syringe) 10 ml IV PRN PRN PRN Reason: LINE FLUSH Review of Systems ROS unobtainable: due to mental status Exam - Vital Signs Vital signs: Vital Signs Temp Pulse Resp BP Pulse Ox 98 F 74 12 65/39 94 01/30/21 02:00 01/30/21 02:00 01/30/21 02:00 01/30/21 02:00 01/30/21 02:00 - Physical Exam Narrative exam: Obese elderly -Indian female lying in bed in no acute distress HEENT: NCAT, jocelyn Neck: Supple, no venous distention CVS: S1S2 RRR with no murmur, rub or gallop Chest: Clear to auscultation Abdomen: Obese, soft, nontender, no organomegaly, bowel sounds are present Extremities: No edema Skin warm and dry Genitourinary deferred Neuro: Awake, alert no focal deficits, memory impaired Results - Lab Results 01/30/21 02:25 01/30/21 02:25 Most recent lab results Calcium 8.7 mg/dL (8.4-10.2) 01/30/21 02:25 Assessment and Plan - Patient Problems (1) NAZ (acute kidney injury) Current Visit: Yes Status: Acute Plan to address problem: Acute kidney injury prerenal azotemia versus acute tubular necrosis secondary to hypotension. Continue gentle volume repletion and follow-up electrolytes and renal function. (2) Hyponatremia Current Visit: Yes Status: Acute Plan to address problem: Hypovolemic hyponatremia. Continue volume repletion with isotonic saline and follow-up sodium (3) Toxic encephalopathy Current Visit: Yes Status: Acute Plan to address problem: Probably secondary to urinary tract infection and/or opiates. Mental status improved. Continue to monitor (4) Chronic kidney disease, stage 3 unspecified Current Visit: Yes Status: Acute Plan to address problem: Stage III chronic kidney disease presumably secondary to hypertensive nephrosclerosis. Follow-up electrolytes and renal function (5) UTI (urinary tract infection) Current Visit: Yes Status: Acute Plan to address problem: Continue empiric antibiotics. Follow-up cultures (6) Dementia Current Visit: Yes Status: Acute Plan to address problem: Continue treatment (7) Mass of lower lobe of left lung Current Visit: Yes Status: Acute Plan to address problem: Will need follow-up with pulmonary at some point as the mass is suggestive of bronchogenic carcinoma
[2021-01-31] MEDS: cefTRIAXone/NS 1 GM/50 ML 1 GM/50 ML BAG IV SCH (05:40)
[2021-01-31] MEDS: HEPARIN 5,000 UNIT/1 ML VIAL SUB-Q SCH ×3 (05:41→21:38)
[2021-01-31] MEDS: SODIUM CHLORIDE 0.9% 1000 ML 1,000 ML IV SCH ×2 (05:52→21:38)
[2021-01-31 06:06] LABS: Hematocrit 33.1 % (30.3-42.9); Mean Corpuscular HGB Conc 33 % (30-34); Mean Corpuscular Volume 95 fl (79-97); Platelet Count 156 K/mm3 (140-440); Red Blood Count 3.48 M/mm3 (3.65-5.03); Red Cell Distribution Width 13.7 % (13.2-15.2)
[2021-01-31 06:09] LABS: Basophils % (Auto) 0.3 % (0.0-1.8); Eosinophils % (Auto) 2.1 % (0.0-4.3); Lymphocytes # (Auto) 4.2 K/mm3 (1.2-5.4); Lymphocytes % (Auto) 56.4 % (13.4-35.0); Monocytes % (Auto) 4.7 % (0.0-7.3)
[2021-01-31 06:10] LABS: Eosinophils # (Auto) 0.2 K/mm3 (0.0-0.4); Monocytes # (Auto) 0.4 K/mm3 (0.0-0.8)
[2021-01-31 06:18] LABS: INR 1.14 (0.87-1.13)
[2021-01-31 06:32] LABS: Calcium 8.1 mg/dL (8.4-10.2)
--- NOTE | 2021-01-31 11:15 | Progress Note ---
Assessment and Plan - Patient Problems (1) NAZ (acute kidney injury) Current Visit: Yes Status: Acute Plan to address problem: Acute kidney injury prerenal azotemia versus acute tubular necrosis secondary to hypotension. Kidney function is improving. Continue gentle volume repletion and follow-up electrolytes and renal function. (2) Hyponatremia Current Visit: Yes Status: Acute Plan to address problem: Hypovolemic hyponatremia. Sodium has improved. Continue volume repletion with isotonic saline and follow-up sodium (3) Toxic encephalopathy Current Visit: Yes Status: Acute Plan to address problem: Probably secondary to urinary tract infection and/or opiates. Mental status improved. Continue to monitor (4) Chronic kidney disease, stage 3 unspecified Current Visit: Yes Status: Acute Plan to address problem: Stage III chronic kidney disease presumably secondary to hypertensive nephrosclerosis. Follow-up electrolytes and renal function (5) UTI (urinary tract infection) Current Visit: Yes Status: Acute Plan to address problem: Continue empiric antibiotics. Follow-up cultures (6) Dementia Current Visit: Yes Status: Acute Plan to address problem: Continue treatment (7) Mass of lower lobe of left lung Current Visit: Yes Status: Acute Plan to address problem: Will need follow-up with pulmonary at some point as the mass is suggestive of bronchogenic carcinoma Subjective Date of service: 01/31/21 Principal diagnosis: Acute kidney injury superimposed on chronic kidney disease Interval history: Patient seen lying in bed. She has no new complaints. No nausea, vomiting or diarrhea. No pain. No shortness of breath Objective - Exam Narrative Exam: Obese elderly -[place]oz[place] female lying in bed in no acute distress HEENT: NCAT, jocelyn Neck: Supple, no venous distention CVS: S1S2 RRR with no murmur, rub or gallop Chest: Clear to auscultation Abdomen: Obese, soft, nontender, no organomegaly, bowel sounds are present Extremities: No edema Skin warm and dry Genitourinary deferred Neuro: Awake, alert no focal deficits, memory impaired - Vital Signs Vital signs: Vital Signs - 12hr 01/30/21 01/31/21 01/31/21 23:21 04:12 08:10 Temperature 98.2 F 98.3 F 98.5 F Pulse Rate 78 80 83 Respiratory 19 20 19 Rate Blood Pressure 109/56 124/56 120/57 O2 Sat by Pulse 99 98 98 Oximetry - Lab 01/31/21 05:18 01/31/21 05:18 Most recent lab results Calcium 8.1 mg/dL (8.4-10.2) L 01/31/21 05:18 Medications & Allergies - Medications Allergies/Adverse Reactions: Allergies Sulfa (Sulfonamide Antibiotics) Allergy (Verified 02/29/16 21:57) Nausea Home Medications: Home Medications Medication Instructions Recorded Confirmed Last Taken Type Allopurinol 1 tab PO BID 03/01/16 01/30/21 Unknown History Cholecalciferol Vit D3 [Vitamin D3 1,000 unit PO QDAY 03/01/16 01/30/21 Unknown History 1,000 UNIT TAB] Folic Acid [Folvite] 1 mg PO QDAY 03/01/16 01/30/21 Unknown History Losartan [Cozaar] 25 mg PO QDAY 03/01/16 01/30/21 Unknown History Metoprolol [Lopressor TAB] 75 mg PO BID 03/01/16 01/30/21 Unknown History Simvastatin 1 tab PO QHS 03/01/16 01/30/21 Unknown History Spironolactone [Aldactone] 25 mg PO QDAY 03/01/16 01/30/21 Unknown History Albuterol Sulfate [Ventolin HFA] 2 puff IH Q4HR PRN #1 hfa.aer.ad 03/02/16 01/30/21 Unknown Rx Apixaban [Eliquis] 5 mg PO QDAY 01/30/21 01/30/21 Unknown History Furosemide [Lasix TAB] 40 mg PO 2XW 01/30/21 01/30/21 Unknown History Pregabalin 200 mg PO QHS 01/30/21 01/30/21 Unknown History Terazosin HCl 10 mg PO QHS 01/30/21 01/30/21 Unknown History Active Medications: Generic Name Dose Route Start Last Admin Trade Name Freq PRN Reason Stop Dose Admin Acetaminophen 650 mg 01/30/21 05:56 Acetaminophen 325 Mg Tab PO Q4H PRN Pain MILD(1-3)/Fever >100.5/DOWNS Heparin Sodium (Porcine) 5,000 unit 01/30/21 06:00 01/31/21 05:41 Heparin 5,000 Unit/1 Ml Vial SUB-Q 5,000 unit Q8HR TERRI Administration Sodium Chloride 1,000 mls @ 125 mls/hr 01/30/21 06:00 01/31/21 05:52 Nacl 0.9% 1000 Ml IV 125 mls/hr DIRECT TERRI Administration Ceftriaxone Sodium 1 gm in 50 mls @ 100 mls/hr 01/31/21 06:00 01/31/21 05:40 Rocephin/Ns 1 Gm/50 Ml IV 100 mls/hr Q24H TERRI Administration Protocol Magnesium Hydroxide 30 ml 01/30/21 05:56 Magnesium Hydroxide (Mom) Oral Liqd Udc PO Q4H PRN Constipation Morphine Sulfate 2 mg 01/30/21 05:56 Morphine 2 Mg/1 Ml Inj IV Q4H PRN Pain, Moderate (4-6) Naloxone HCl 0.1 mg 01/30/21 02:06 Naloxone 0.4 Mg/1 Ml Inj IV Q2MIN PRN Res Rate </= 8 or 02 SAT < 92% Ondansetron HCl 4 mg 01/30/21 05:56 Ondansetron 4 Mg/2 Ml Inj IV Q8H PRN Nausea And Vomiting Sodium Chloride 10 ml 01/30/21 10:00 01/30/21 22:25 Sodium Chloride 0.9% 10 Ml Flush Syringe IV 10 ml BID TERRI Administration Sodium Chloride 10 ml 01/30/21 05:56 Sodium Chloride 0.9% 10 Ml Flush Syringe IV PRN PRN LINE FLUSH
--- NOTE | 2021-01-31 15:07 | Progress Note ---
Assessment and Plan --Acute metabolic encephalopathy, resolved Possibly secondary to underlying infection. Patient has been commenced on empiric IV antibiotics. Will monitor mental status. --Subhash, likely vasomotor nephropathy Baseline creatinine 1.4 Patient placed on IV fluid. Will monitor BUN and creatinine. Nephrology following --UTI, placed on empiric IV antibiotics. We will await urine culture result. --Dementia, history of, continue supportive care --Obesity, dietary recommendation as outpatient when clinically more stable --DVT prophylaxis, placed on subcutaneous heparin --Full CODE STATUS Brief history: 75-year-old -[place] female with known history of hypertension, dementia and history of CVA in the past was brought into the emergency room by EMS for altered mental status. Work-up in the emergency room reveals urinary tract infection, acute kidney injury. Daily clinical course: 01/30: Continue IV antibiotics, follow urine culture, continue IV fluid, follow BMP. Consult nephrology if renal function worsening Continue current management and plan as dictated in HPI 01/31: Creatinine level improved 1.8 from 2.5. Continue IV fluid and follow renal function. Continue empiric antibiotics. Will order PT eval. If clinically stable and creatinine continue to improve possible discharge tomorrow Subjective Date of service: 01/31/21 Principal diagnosis: Acute kidney injury superimposed on chronic kidney disease Interval history: Patient seen and examined. Medical records and medication list reviewed. No acute event overnight noted by the RN. Patient denies any chest pain or difficulty breathing. Patient is tolerating diet. Patient states that she is feeling a lot better today Discussed plan of care at bedside with patient. Objective - Exam Narrative Exam: GENERAL: well-developed obese elderly -[place] female lying on bed appeared to be in no discomfort. HEENT: Normocephalic. Atraumatic. No conjunctival congestion or icterus. Patient has moist mucous membranes. NECK: Supple. Trachea midline. CHEST/LUNGS: Clear to auscultated bilaterally, breathing nonlabored. No wheezes crackles or rhonchi. HEART/CARDIOVASCULAR: Regular in rate and rhythm. S1 and S2 positive. ABDOMEN: Abdomen is soft, nontender. Patient has normal bowel sounds. SKIN: There is no rash. Warm and dry. NEURO: No focal motor deficit. Follows command. MUSCULOSKELETAL: No joint effusion or tenderness. EXTRIMITY: No edema, no cyanosis or clubbing. PSYCH: Cooperative. - Constitutional Vitals: Vital Signs - 12hr 01/31/21 01/31/21 01/31/21 04:12 07:00 07:55 Temperature 98.3 F Pulse Rate 80 83 Respiratory 20 18 Rate Blood Pressure 124/56 O2 Sat by Pulse 98 98 Oximetry 01/31/21 01/31/21 08:10 11:53 Temperature 98.5 F 98.3 F Pulse Rate 83 82 Respiratory 19 19 Rate Blood Pressure 120/57 130/71 O2 Sat by Pulse 98 95 Oximetry - Labs CBC & Chem 7: 01/31/21 05:18 01/31/21 05:18 Labs: Abnormal lab results 01/31/21 01/31/21 01/31/21 Range/Units 05:18 05:18 05:18 RBC 3.48 L (3.65-5.03) M/mm3 Lymph % (Auto) 56.4 H (13.4-35.0) % Seg Neutrophils % 36.5 L (40.0-70.0) % INR 1.14 H (0.87-1.13) Chloride 110.1 H (98-107) mmol/L BUN 32 H (7-17) mg/dL Creatinine 1.8 H (0.6-1.2) mg/dL Calcium 8.1 L (8.4-10.2) mg/dL HEART Score - HEART Score Troponin: Troponin T < 0.010 ng/mL (0.00-0.029) 01/30/21 02:25
[2021-02-01] MEDS: HEPARIN 5,000 UNIT/1 ML VIAL SUB-Q SCH (05:12)
[2021-02-01] MEDS: cefTRIAXone/NS 1 GM/50 ML 1 GM/50 ML BAG IV SCH (05:13)
[2021-02-01] MEDS: SODIUM CHLORIDE 0.9% 1000 ML 1,000 ML IV SCH (05:13)
[2021-02-01 05:32] LABS: Calcium 8.2 mg/dL (8.4-10.2)
[2021-02-01 08:07] VITALS: BP 140/67
--- NOTE | 2021-02-01 08:33 | Progress Note ---
Assessment and Plan - Patient Problems (1) NAZ (acute kidney injury) Current Visit: Yes Status: Acute Plan to address problem: Acute kidney injury prerenal azotemia versus acute tubular necrosis secondary to hypotension. Kidney function has improved back to baseline. Discontinue intravenous fluids. Okay to discharge home from renal perspective. We will schedule follow-up with me in 2 to 3 weeks (2) Hyponatremia Current Visit: Yes Status: Acute Plan to address problem: Hypovolemic hyponatremia. Sodium has improved. (3) Toxic encephalopathy Current Visit: Yes Status: Acute Plan to address problem: Probably secondary to urinary tract infection and/or opiates. Mental status improved back to baseline. (4) Chronic kidney disease, stage 3 unspecified Current Visit: Yes Status: Acute Plan to address problem: Stage III chronic kidney disease presumably secondary to hypertensive nephrosclerosis. Follow-up electrolytes and renal function (5) UTI (urinary tract infection) Current Visit: Yes Status: Acute Plan to address problem: Urine culture was a contaminated sample (6) Dementia Current Visit: Yes Status: Acute Plan to address problem: Continue treatment (7) Mass of lower lobe of left lung Current Visit: Yes Status: Acute Plan to address problem: Will need follow-up with pulmonary at some point as the mass is suggestive of bronchogenic carcinoma Subjective Date of service: 02/01/21 Principal diagnosis: Acute kidney injury superimposed on chronic kidney disease Interval history: Patient seen lying in bed. She has no new complaints. No nausea, vomiting or diarrhea. No pain. No shortness of breath Objective - Exam Narrative Exam: Obese elderly -[place] female lying in bed in no acute distress HEENT: NCAT, jocelyn Neck: Supple, no venous distention CVS: S1S2 RRR with no murmur, rub or gallop Chest: Clear to auscultation Abdomen: Obese, soft, nontender, no organomegaly, bowel sounds are present Extremities: No edema Skin warm and dry Genitourinary deferred Neuro: Awake, alert no focal deficits, memory impaired - Vital Signs Vital signs: Vital Signs - 12hr 01/31/21 01/31/21 02/01/21 22:00 23:12 03:00 Temperature 98.3 F Pulse Rate 86 82 Respiratory 20 18 Rate Blood Pressure 134/75 O2 Sat by Pulse 97 98 Oximetry 02/01/21 02/01/21 02/01/21 04:08 08:00 08:10 Temperature 98.3 F 98.4 F Pulse Rate 81 84 Respiratory 20 18 20 Rate Blood Pressure 132/66 140/67 O2 Sat by Pulse 98 93 97 Oximetry - Lab 01/31/21 05:18 02/01/21 04:43 Most recent lab results Calcium 8.2 mg/dL (8.4-10.2) L 02/01/21 04:43 Medications & Allergies - Medications Allergies/Adverse Reactions: Allergies Sulfa (Sulfonamide Antibiotics) Allergy (Verified 02/29/16 21:57) Nausea Home Medications: Home Medications Medication Instructions Recorded Confirmed Last Taken Type Allopurinol 1 tab PO BID 03/01/16 01/30/21 Unknown History Cholecalciferol Vit D3 [Vitamin D3 1,000 unit PO QDAY 03/01/16 01/30/21 Unknown History 1,000 UNIT TAB] Folic Acid [Folvite] 1 mg PO QDAY 03/01/16 01/30/21 Unknown History Losartan [Cozaar] 25 mg PO QDAY 03/01/16 01/30/21 Unknown History Metoprolol [Lopressor TAB] 75 mg PO BID 03/01/16 01/30/21 Unknown History Simvastatin 1 tab PO QHS 03/01/16 01/30/21 Unknown History Spironolactone [Aldactone] 25 mg PO QDAY 03/01/16 01/30/21 Unknown History Albuterol Sulfate [Ventolin HFA] 2 puff IH Q4HR PRN #1 hfa.aer.ad 03/02/16 01/30/21 Unknown Rx Apixaban [Eliquis] 5 mg PO QDAY 01/30/21 01/30/21 Unknown History Furosemide [Lasix TAB] 40 mg PO 2XW 01/30/21 01/30/21 Unknown History Pregabalin 200 mg PO QHS 01/30/21 01/30/21 Unknown History Terazosin HCl 10 mg PO QHS 01/30/21 01/30/21 Unknown History Active Medications: Generic Name Dose Route Start Last Admin Trade Name Freq PRN Reason Stop Dose Admin Acetaminophen 650 mg 01/30/21 05:56 Acetaminophen 325 Mg Tab PO Q4H PRN Pain MILD(1-3)/Fever >100.5/DOWNS Heparin Sodium (Porcine) 5,000 unit 01/30/21 06:00 02/01/21 05:12 Heparin 5,000 Unit/1 Ml Vial SUB-Q 5,000 unit Q8HR TERRI Administration Sodium Chloride 1,000 mls @ 125 mls/hr 01/30/21 06:00 02/01/21 05:13 Nacl 0.9% 1000 Ml IV 125 mls/hr DIRECT TERRI Administration Ceftriaxone Sodium 1 gm in 50 mls @ 100 mls/hr 01/31/21 06:00 02/01/21 05:13 Rocephin/Ns 1 Gm/50 Ml IV 100 mls/hr Q24H TERRI Administration Protocol Magnesium Hydroxide 30 ml 01/30/21 05:56 Magnesium Hydroxide (Mom) Oral Liqd Udc PO Q4H PRN Constipation Morphine Sulfate 2 mg 01/30/21 05:56 Morphine 2 Mg/1 Ml Inj IV Q4H PRN Pain, Moderate (4-6) Naloxone HCl 0.1 mg 01/30/21 02:06 Naloxone 0.4 Mg/1 Ml Inj IV Q2MIN PRN Res Rate </= 8 or 02 SAT < 92% Ondansetron HCl 4 mg 01/30/21 05:56 Ondansetron 4 Mg/2 Ml Inj IV Q8H PRN Nausea And Vomiting Sodium Chloride 10 ml 01/30/21 10:00 01/31/21 21:39 Sodium Chloride 0.9% 10 Ml Flush Syringe IV 10 ml BID TERRI Administration Sodium Chloride 10 ml 01/30/21 05:56 Sodium Chloride 0.9% 10 Ml Flush Syringe IV PRN PRN LINE FLUSH
--- NOTE | 2021-02-01 10:38 | Electrocardiograph Report ---
[facility] Test Date: 2021-01-30 Test Time: 02:19:18 Pat Name: REYNALDO WILLIS Department: Room: A472 1 Gender: F Engine Turner: SARAH Townsend : 1945 Requested By: AMADA MARTINES Order Number: [id number] Reading MD: Simone Patel Measurements Intervals [place] Rate: 73 P: -26 MT: 128 QRS: 33 QRSD: 84 T: 41 QT: 423 QTc: 467 Interpretive Statements Sinus rhythm No previous ECG available for comparison Electronically Signed On 02-01-2021 10:38:35 EDT by Simone Patel
--- NOTE | 2021-02-01 15:18 | Discharge Summary ---
Providers - Providers Date of Admission: 01/30/21 05:22 Date of discharge: 02/01/21 Attending physician: IMMANUEL RICHARD 01/30/21 06:48 Consult to Physician [CONS] Routine Comment: Consulting Provider: CARLOTA CORREIA Physician Instructions: Reason For Exam: NAZ 02/01/21 11:24 Physical Therapy Evaluation and Treat [CONS] Routine Comment: Reason For Exam: Debility Primary care physician: CHALO MCFARLANE Hospitalization Condition: Fair Hospital course: Brief history: 75-year-old -[place] female with known history of hype rtension, dementia and history of CVA in the past was brought into the emergency room by EMS for altered mental status. Work-up in the emergency room reveals urinary tract infection, acute kidney injury. Patient was placed on empiric antibiotic, urine culture was sent, started on IV fluid and admitted to the hospital for further evaluation management. She also noted to have hypotension, her home antihypertensive medications were remain on hold. Daily clinical course: 01/30: Continue IV antibiotics, follow urine culture, continue IV fluid, follow BMP. Consulted nephrology , Continue current management and plan as dictated in HPI 01/31: Creatinine level improved 1.8 from 2.5. Continue IV fluid and follow renal function. Continue empiric antibiotics. Will order PT eval. If clinically stable and creatinine continue to improve possible discharge tomorrow 02/01: cr 1.5 today, patient clinically stable. DC home with outpatient follow- up. Recommended to have repeat BMP in 1 week. Disposition: DC-01 TO HOME OR SELFCARE Final Discharge Diagnosis (Prints w/discharge instructions): Acute metabolic encephalopathy resolved, NAZ with vasomotor nephropathy, CKD stage III, UTI, mild dementia, obesity, mild hyponatremia, hypotension -resolved, h/o gout, chronic anticoagulation. Time spent for discharge: 34 minutes Core Measure Documentation - Palliative Care Palliative Care/ Comfort Measures: Not Applicable - Core Measures Any of the following diagnoses?: none Exam - Physical Exam Narrative exam: GENERAL: well-developed obese elderly -[place] female lying on bed appeared to be in no discomfort. HEENT: Normocephalic. Atraumatic. No conjunctival congestion or icterus. Patient has moist mucous membranes. NECK: Supple. Trachea midline. CHEST/LUNGS: Clear to auscultated bilaterally, breathing nonlabored. No wheezes crackles or rhonchi. HEART/CARDIOVASCULAR: Regular in rate and rhythm. S1 and S2 positive. ABDOMEN: Abdomen is soft, nontender. Patient has normal bowel sounds. SKIN: There is no rash. Warm and dry. NEURO: No focal motor deficit. Follows command. MUSCULOSKELETAL: No joint effusion or tenderness. EXTRIMITY: No edema, no cyanosis or clubbing. PSYCH: Cooperative. - Constitutional Vitals: Temp Pulse Resp BP Pulse Ox 98.4 F 84 20 140/67 97 02/01/21 08:00 02/01/21 08:00 02/01/21 08:10 02/01/21 08:00 02/01/21 08:10 Plan Activity: advance as tolerated Weight Bearing Status: Weight Bear as Tolerated Diet: low fat, low salt Special Instructions: record daily BP diary Additional Instructions: Repeat BMP in 1 week. Follow-up with PCP and nephrology in 1 week Follow up with: PRIMARY MD SHAHZAD [Referring] - 3-5 Days ELIEL PARKER MD [Staff Physician] - 7 Days
[2021-02-01] MEDS ORDERED: NON-FORMULARY EACH (Apixaban 5 MG Tablet) PO SCH (15:30)
[2021-02-01] MEDS ORDERED: allopurinoL 100 MG TAB PO SCH (16:00)
[2021-02-01] MEDS ORDERED: PRAVASTATIN 80 MG TAB PO SCH (22:00)
[2021-02-01] MEDS ORDERED: PREGABALIN 50 MG CAP PO SCH (22:00)
[2021-02-01] MEDS ORDERED: PREGABALIN 200 MG PO SCH (22:00)
[2021-02-01] MEDS ORDERED: NON-FORMULARY EACH (Simvastatin [Simvastatin] 40 MG Tablet) PO SCH (22:00)
[2021-02-02] MEDS ORDERED: CHOLECALCIFEROL (VIT D3) 1000 UNIT (25 mcg) TAB PO SCH (10:00)
[2021-02-02] MEDS ORDERED: FOLIC ACID 1 MG TAB PO SCH (10:00)
== END 2021-02-01 17:12 | disposition home or self-care (01) ==
LOC: ED 01:57 → 4A 05:22
PROVIDERS: ADMIT Internal Medicine Geriatric Medicine; ATTEND Internal Medicine
DX: G93.40 Encephalopathy, unspecified (principal); N17.9 Acute kidney failure, unspecified; I12.9 Hypertensive chronic kidney disease with stage 1 through stage 4 chronic kidney disease, or unspecified chronic kidney disease; N18.30 Chronic kidney disease, stage 3 unspecified; I95.9 Hypotension, unspecified; J45.909 Unspecified asthma, uncomplicated; F03.90 Unspecified dementia, unspecified severity, without behavioral disturbance, psychotic disturbance, mood disturbance, and anxiety; N39.0 Urinary tract infection, site not specified; I71.4 Abdominal aortic aneurysm, without rupture; E87.1 Hypo-osmolality and hyponatremia; G92 Toxic encephalopathy; E66.9 Obesity, unspecified; R91.8 Other nonspecific abnormal finding of lung field; R53.1 Weakness; Z87.898 Personal history of other specified conditions; Z86.73 Personal history of transient ischemic attack (TIA), and cerebral infarction without residual deficits; Z90.710 Acquired absence of both cervix and uterus; Z68.33 Body mass index [BMI] 33.0-33.9, adult
CPT/HCPCS: 36415; 70450; 71045; 74176; 80048; 80053; 80307; 81001; 82140; 82550; 84443; 84484; 85025; 85610; 85730; 87086; 93005; 96361; 96365; 96366; 96372; 99285; G0378; J0696; J1644; J7030; J7120; 80320; G0480

== ENCOUNTER 2022-04-22 00:52 | Inpatient (IN) | payer MEDICARE ==
[2022-04-22] MEDS ORDERED: ROCURONIUM 50 MG/5 ML INJ IV ONE ×2 (00:59→01:16)
[2022-04-22] MEDS ORDERED: ETOMIDATE 20 MG/10 ML INJ IV ONE ×2 (00:59→01:16)
[2022-04-22] MEDS ORDERED: SUCCINYLCHOLINE CHLORIDE 200 MG/10 ML INJ MDV ONE (01:02)
[2022-04-22] MEDS ORDERED: SODIUM CHLORIDE 0.9% 1000 ML 1,000 ML IV ONE ×2 (01:14→02:49)
--- NOTE | 2022-04-22 01:43 | XRay Report ---
CHEST 1 VIEW INDICATION / CLINICAL INFORMATION: Altered Mental Status. COMPARISON: Chest x-ray 01/30/2021 FINDINGS: SUPPORT DEVICES: Interval placement of endotracheal tube tip 3 to 4 cm above ariel. Orogastric tube is looped within the upper esophagus, repositioning recommended. HEART / MEDIASTINUM: Stable interval appearance of the cardiomediastinal silhouette. LUNGS / PLEURA: Increased airspace opacities or left lung. Lungs otherwise clear. BONES: No significant osseous abnormality. ADDITIONAL FINDINGS: No significant additional findings. IMPRESSION: 1. Interval placement of endotracheal tube and esophagogastric tube as detailed. Repositioning of eso phagogastric tube is recommended. 2. Interval increase in nodular airspace opacity left lower lung. Otherwise no evidence of active car diopulmonary disease. Signer Name: Fritz Urbina II, MD Signed: 04/22/2022 1:38 AM Workstation Name: [id number]
[2022-04-22 02:22] LABS: Basophils % (Auto) 0.3 % (0.0-1.8); Eosinophils # (Auto) 0.1 K/mm3 (0.0-0.4); Eosinophils % (Auto) 0.7 % (0.0-4.3); Hematocrit 41.6 % (30.3-42.9); Hemoglobin 13.8 gm/dl (10.1-14.3); Lymphocytes # (Auto) 3.9 K/mm3 (1.2-5.4); Lymphocytes % (Auto) 51.6 % (13.4-35.0); Mean Corpuscular HGB Conc 33 % (30-34); Mean Corpuscular Volume 97 fl (79-97); Monocytes # (Auto) 0.3 K/mm3 (0.0-0.8); Monocytes % (Auto) 4.6 % (0.0-7.3); Red Blood Count 4.28 M/mm3 (3.65-5.03); Red Cell Distribution Width 13.9 % (13.2-15.2)
[2022-04-22 02:24] LABS: ABG Base Excess -8.1 mmol/L (-2.0-3.0); ABG HCO3 17.5 mmol/L (20.0-26.0); ABG Methemoglobin 0.5 % (0.0-1.5); ABG Oxygen Saturation 98.6 % (95.0-99.0); ABG PH 7.303 pH Units (7.350-7.450); ABG PO2 141.5 mm Hg (80.0-90.0)
[2022-04-22 02:31] LABS: Platelet Count 211 K/mm3 (140-440)
[2022-04-22 02:35] LABS: Alanine Aminotransferase 22 units/L (7-56); BUN/Creatinine Ratio 13; Blood Urea Nitrogen 40 mg/dL (7-17); Calcium 9.5 mg/dL (8.4-10.2); Hemolysis Index 26
[2022-04-22] MEDS ORDERED: SODIUM POLYSTYRENE 15 GM/60 ML ORAL LIQD PO ONE (02:48)
[2022-04-22] MEDS ORDERED: INSULIN REGULAR, HUMAN 100 UNITS/1 ML IV ONE (02:49)
[2022-04-22] MEDS ORDERED: DEXTROSE 50% IN WATER (25GM) 50 ML SYRINGE IV ONE (02:49)
[2022-04-22] MEDS ORDERED: CALC GLUCONATE 1GM/NS 100 ML 1 GM/100 ML BAG IV ONE (03:00)
--- NOTE | 2022-04-22 03:10 | Cat Scan Report ---
CT HEAD WITHOUT CONTRAST INDICATION / CLINICAL INFORMATION: Altered Mental Status. TECHNIQUE: CT head was performed without administration of intravenous contrast. All CT scans at this location are performed using CT dose reduction for ALARA by means of automated exposure control. COMPARISON: CT head 01/30/2021 FINDINGS: CEREBRAL HEMISPHERES: Generalized atrophy and bilateral regions of periventricular white matter hypoa ttenuation compatible with microvascular ischemia are demonstrated. No midline shift. Basal cisterns patent. HEMORRHAGE: None. CEREBELLUM / BRAINSTEM: No significant abnormality. ORBITS: No significant abnormality. Prior bilateral cataract surgery suggested. SOFT TISSUES: No significant abnormality. SKULL: No significant abnormality. PARANASAL SINUSES / MASTOID AIR CELLS: Normal as visualized. ADDITIONAL FINDINGS: Endotracheal tube and esophagogastric tube are present. IMPRESSION: 1. No acute intracranial abnormality. Signer Name: Fritz Urbina II, MD Signed: 04/22/2022 3:05 AM Workstation Name: [id number]
[2022-04-22 03:38] LABS: Bilirubin,Urine NEG (Negative); Blood,Urine NEG (Negative); Color,Urine Amber (Yellow); Urobilinogen,Urine < 2.0 mg/dL (<2.0)
[2022-04-22 03:52] LABS: Bacteria,Urine 1+ /HPF (Negative); Hyaline Casts,Urine 9 /LPF; Mucus,Urine FEW /HPF
--- NOTE | 2022-04-22 04:19 | Emergency Department Report ---
ED Altered Mental Status HPI - General Chief Complaint: Dyspnea/Respdistress Stated Complaint: AMS Time Seen by Provider: 04/22/22 01:13 Source: family, EMS Mode of arrival: Stretcher Limitations: No Limitations - History of Present Illness Initial Comments: Patient is a 76-year-old female brought in by EMS from home for altered mental status. Per family patient has been less active and alert over the past several days with very little appetite. EMS reports patient was obtunded had agonal respirations and thready pulse on scene and began [id number] ventilation. Narcan was given with no response. - Related Data Home Medications Medication Instructions Recorded Confirmed Last Taken Allopurinol 1 tab PO BID 03/01/16 01/30/21 Unknown Cholecalciferol Vit D3 [Vitamin D3 1,000 unit PO QDAY 03/01/16 01/30/21 Unknown 1,000 UNIT TAB] Folic Acid [Folvite] 1 mg PO QDAY 03/01/16 01/30/21 Unknown Simvastatin 1 tab PO QHS 03/01/16 01/30/21 Unknown Apixaban [Eliquis] 5 mg PO QDAY 01/30/21 01/30/21 Unknown Pregabalin 200 mg PO QHS 01/30/21 01/30/21 Unknown Previous Rx's Medication Instructions Recorded Last Taken Type Albuterol Sulfate [Ventolin HFA] 2 puff IH Q4HR PRN #1 hfa.aer.ad 03/02/16 Unknown Rx Allergies Allergy/AdvReac Type Severity Reaction Status Date / Time Sulfa (Sulfonamide Allergy Nausea Verified 02/29/16 21:57 Antibiotics) ED Review of Systems ROS: Stated complaint: AMS Other details as noted in HPI Comment: Unobtainable due to pts medical conditions ED Past Medical Hx - Past Medical History Previous Medical History?: Yes Hx Hypertension: Yes Hx Renal Disease: Yes Hx Asthma: Yes Additional medical history: kidney disease, sciatic nerve pain - Surgical History Past Surgical History?: Yes Additional Surgical History: hysterectomy-1974 - Social History Smoking Status: Unknown if ever smoked Substance Use Type: None - Medications Home Medications: Home Medications Medication Instructions Recorded Confirmed Last Taken Type Allopurinol 1 tab PO BID 03/01/16 01/30/21 Unknown History Cholecalciferol Vit D3 [Vitamin D3 1,000 unit PO QDAY 03/01/16 01/30/21 Unknown History 1,000 UNIT TAB] Folic Acid [Folvite] 1 mg PO QDAY 03/01/16 01/30/21 Unknown History Simvastatin 1 tab PO QHS 03/01/16 01/30/21 Unknown History Albuterol Sulfate [Ventolin HFA] 2 puff IH Q4HR PRN #1 hfa.aer.ad 03/02/16 01/30/21 Unknown Rx Apixaban [Eliquis] 5 mg PO QDAY 01/30/21 01/30/21 Unknown History Pregabalin 200 mg PO QHS 01/30/21 01/30/21 Unknown History ED Physical Exam - General Limitations: No Limitations General appearance: obtunded - Head Head exam: Present: atraumatic, normocephalic - Eye Pupils: Present: miosis - Respiratory Respiratory exam: Present: other (Minimal respiratory effort, patient being bagged) - Cardiovascular Cardiovascular Exam: Present: regular rate, normal rhythm, normal heart sounds - GI/Abdominal GI/Abdominal exam: Present: soft. Absent: distended - Rectal Rectal exam: Present: deferred - Neurological Exam Neurological exam: Present: altered, other - Skin Skin exam: Present: warm, dry, intact, normal color ED Course Vital Signs 04/22/22 04/22/22 04/22/22 00:53 00:58 01:00 Temperature 98 F Pulse Rate 78 81 77 Respiratory 18 16 16 Rate Blood Pressure 151/130 151/130 O2 Sat by Pulse 99 99 99 Oximetry 04/22/22 04/22/22 04/22/22 01:15 01:31 01:34 Temperature Pulse Rate 116 H 93 H 93 H Respiratory 11 L 20 Rate Blood Pressure 86/52 83/50 83/50 O2 Sat by Pulse 100 100 100 Oximetry 04/22/22 04/22/22 04/22/22 01:45 02:01 02:15 Temperature Pulse Rate 101 H 83 78 Respiratory 20 20 20 Rate Blood Pressure 74/44 151/130 66/39 O2 Sat by Pulse 100 99 98 Oximetry 04/22/22 04/22/22 03:09 03:21 Temperature Pulse Rate 80 Respiratory Rate Blood Pressure 90/51 O2 Sat by Pulse 100 100 Oximetry - Intubation Time Out Performed: No (Emergent procedure) Sedative: Etomidate Mg Given: 20 Paralytic: Rocuronium Mg Given: 100 Laryngoscope: fiberoptic video scope Size: 4 ET Tube Size: 7.5 Tube Secured Depth (cm): 22 Tube Secured Location: lips Tube Placement Confirmation: visualized tube passing t, equal breath sounds bilat, no breath sounds over epi Patient Tolerated Procedure: well Intubation Complications: none - Lab Data Result diagrams: 04/22/22 02:01 04/22/22 02:01 Lab Results 04/22/22 04/22/22 04/22/22 Range/Units 01:50 02:01 02:01 WBC 7.5 (4.5-11.0) K/mm3 RBC 4.28 (3.65-5.03) M/mm3 Hgb 13.8 (10.1-14.3) gm/dl Hct 41.6 (30.3-42.9) % MCV 97 (79-97) fl MCH 32 (28-32) pg MCHC 33 (30-34) % RDW 13.9 (13.2-15.2) % Plt Count 211 (140-440) K/mm3 Lymph % (Auto) 51.6 H (13.4-35.0) % [place] % (Auto) 4.6 (0.0-7.3) % Eos % (Auto) 0.7 (0.0-4.3) % Baso % (Auto) 0.3 (0.0-1.8) % Lymph # (Auto) 3.9 (1.2-5.4) K/mm3 [place] # (Auto) 0.3 (0.0-0.8) K/mm3 Eos # (Auto) 0.1 (0.0-0.4) K/mm3 Baso # (Auto) 0.0 (0.0-0.1) K/mm3 Seg Neutrophils % 42.8 (40.0-70.0) % Seg Neutrophils # 3.2 (1.8-7.7) K/mm3 ABG pH 7.303 L (7.350-7.450) pH Units ABG pCO2 36.0 mm Hg ABG pO2 141.5 H (80.0-90.0) mm Hg ABG HCO3 17.5 L (20.0-26.0) mmol/L ABG O2 Saturation 98.6 (95.0-99.0) % ABG O2 Content 19.5 (0.0-44) ABG Base Excess -8.1 L (-2.0-3.0) mmol/L ABG Hemoglobin 14.2 (12.0-16.0) gm/dl ABG Carboxyhemoglobin 1.4 (0.0-5.0) % ABG Methemoglobin 0.5 (0.0-1.5) % Oxyhemoglobin 96.8 (95.0-99.0) % FiO2 60 % Sodium 131 L (137-145) mmol/L Potassium 5.8 H (3.6-5.0) mmol/L Chloride 100.1 (98-107) mmol/L Carbon Dioxide 20 L (22-30) mmol/L Anion Gap 17 mmol/L BUN 40 H (7-17) mg/dL Creatinine 3.1 H (0.6-1.2) mg/dL Estimated GFR 18 ml/min BUN/Creatinine Ratio 13 % Glucose 172 H (65-100) mg/dL Lactic Acid (0.7-2.0) mmol/L Calcium 9.5 (8.4-10.2) mg/dL Total Bilirubin 0.50 (0.1-1.2) mg/dL AST 30 (5-40) units/L ALT 22 (7-56) units/L Alkaline Phosphatase 92 (35-129) units/L Ammonia (25-60) umol/L Total Creatine Kinase 184 H (30-135) units/L Troponin T < 0.010 (0.00-0.029) ng/mL Total Protein 9.5 H (6.3-8.2) g/dL Albumin 4.0 (3.9-5) g/dL Albumin/Globulin Ratio 0.7 % Urine Color (Yellow) Urine Turbidity (Clear) Urine pH (5.0-7.0) Ur Specific [place] (1.003-1.030) Urine Protein (Negative) mg/dL Urine Glucose (UA) (Negative) mg/dL Urine Ketones (Negative) mg/dL Urine Blood (Negative) Urine Nitrite (Negative) Urine Bilirubin (Negative) Urine Urobilinogen (<2.0) mg/dL Ur Leukocyte Esterase (Negative) Urine WBC (Auto) (0.0-6.0) /HPF Urine RBC (Auto) (0.0-6.0) /HPF U Epithel Cells (Auto) (0-13.0) /HPF Urine Bacteria (Auto) (Negative) /HPF Hyaline Casts /LPF Urine Mucus /HPF 04/22/22 04/22/22 04/22/22 Range/Units 02:01 02:01 03:31 WBC (4.5-11.0) K/mm3 RBC (3.65-5.03) M/mm3 Hgb (10.1-14.3) gm/dl Hct (30.3-42.9) % MCV (79-97) fl MCH (28-32) pg MCHC (30-34) % RDW (13.2-15.2) % Plt Count (140-440) K/mm3 Lymph % (Auto) (13.4-35.0) % [place] % (Auto) (0.0-7.3) % Eos % (Auto) (0.0-4.3) % Baso % (Auto) (0.0-1.8) % Lymph # (Auto) (1.2-5.4) K/mm3 [place] # (Auto) (0.0-0.8) K/mm3 Eos # (Auto) (0.0-0.4) K/mm3 Baso # (Auto) (0.0-0.1) K/mm3 Seg Neutrophils % (40.0-70.0) % Seg Neutrophils # (1.8-7.7) K/mm3 ABG pH (7.350-7.450) pH Units ABG pCO2 mm Hg ABG pO2 (80.0-90.0) mm Hg ABG HCO3 (20.0-26.0) mmol/L ABG O2 Saturation (95.0-99.0) % ABG O2 Content (0.0-44) ABG Base Excess (-2.0-3.0) mmol/L ABG Hemoglobin (12.0-16.0) gm/dl ABG Carboxyhemoglobin (0.0-5.0) % ABG Methemoglobin (0.0-1.5) % Oxyhemoglobin (95.0-99.0) % FiO2 % Sodium (137-145) mmol/L Potassium (3.6-5.0) mmol/L Chloride (98-107) mmol/L Carbon Dioxide (22-30) mmol/L Anion Gap mmol/L BUN (7-17) mg/dL Creatinine (0.6-1.2) mg/dL Estimated GFR ml/min BUN/Creatinine Ratio % Glucose (65-100) mg/dL Lactic Acid 2.20 H* (0.7-2.0) mmol/L Calcium (8.4-10.2) mg/dL Total Bilirubin (0.1-1.2) mg/dL AST (5-40) units/L ALT (7-56) units/L Alkaline Phosphatase (35-129) units/L Ammonia 16.0 L (25-60) umol/L Total Creatine Kinase (30-135) units/L Troponin T (0.00-0.029) ng/mL Total Protein (6.3-8.2) g/dL Albumin (3.9-5) g/dL Albumin/Globulin Ratio % Urine Color [place] (Yellow) Urine Turbidity Cloudy (Clear) Urine pH 5.0 (5.0-7.0) Ur Specific [place] 1.023 (1.003-1.030) Urine Protein 30 mg/dl (Negative) mg/dL Urine Glucose (UA) Neg (Negative) mg/dL Urine Ketones Neg (Negative) mg/dL Urine Blood Neg (Negative) Urine Nitrite Neg (Negative) Urine Bilirubin Neg (Negative) Urine Urobilinogen < 2.0 (<2.0) mg/dL Ur Leukocyte Esterase Neg (Negative) Urine WBC (Auto) 7.0 H (0.0-6.0) /HPF Urine RBC (Auto) 11.0 (0.0-6.0) /HPF U Epithel Cells (Auto) 16.0 H (0-13.0) /HPF Urine Bacteria (Auto) 1+ (Negative) /HPF Hyaline Casts 9 /LPF Urine Mucus Few /HPF - Medical Decision Making Patient emergently intubated upon arrival. No acute findings on chest x-ray. CT head was performed with no acute findings. CBC grossly unremarkable. CMP reveals acute renal failure with creatinine 3.1. Hyperkalemia of 5.8. Lactic acid 2.2. Patient given 1 L bolus of NS. Urinalysis reveals 7 WBCs with 16 epithelial cells. UTI unlikely. I discussed the case with Dr. Casillas (box toe stitcher), Dr. Ochoa(child care supervisor) and Dr. Gonzales (hospitalist). Will admit to ICU. Critical Care Time: Yes Critical care time in (mins) excluding proc time.: 60 Critical care attestation.: If time is entered above; I have spent that time in minutes in the direct care of this critically ill patient, excluding procedure time. ED Disposition Clinical Impression: Altered mental status, Acute renal failure, Hyperkalemia, Elevated lactic acid level Disposition: 09 ADMITTED INPATIENT Is pt being admited?: Yes Condition: Stable
[2022-04-22] MEDS ORDERED: MORPHINE 2 MG/1 ML INJ IV PRN (04:21)
[2022-04-22] MEDS ORDERED: ACETAMINOPHEN 325 MG TAB PO PRN (04:21)
[2022-04-22] MEDS ORDERED: MORPHINE 4 MG/1 ML INJ IV PRN (04:21)
[2022-04-22] MEDS ORDERED: ONDANSETRON 4 MG/2 ML INJ IV PRN (04:21)
[2022-04-22] MEDS ORDERED: SODIUM CHLORIDE 0.9% 1000 ML 1,000 ML IV SCH (04:30)
--- NOTE | 2022-04-22 04:30 | History and Physical Report ---
History of Present Illness Date of examination: 04/22/22 Date of admission: 04/22/22 Chief complaint: Dyspnea Respiratory distress Acute respiratory failure History of present illness: 76-year-old female brought in by EMS from home for altered mental status. Per family patient has been less active and alert over the past several days with very little appetite. EMS reports patient was obtunded had agonal respirations and thready pulse on scene and began [id number] ventilation. Narcan was given with no response. As per patient took some pain medication at 10:30 PM In the emergency room patient is found to have potassium of 5.8, BUN 40 creatinine 3.1 and lactic acid 2.2, ABG shows 7.303, PCO2 36.0, PO2 141.5 bicarb 17.5 O2 sat [address] head shows no acute intracranial abnormality. Chest x-ray shows no evidence of acute cardiopulmonary disease. So going to admit the patient to the ICU consult critical care as well as nephrology for evaluation Past History Past Medical History: COPD, hypertension, renal failure, other (Asthma, kidney disease, sciatic nerve pain) Past Surgical History: hysterectomy Social history: no significant social history Family history: hypertension Medications and Allergies Allergies Allergy/AdvReac Type Severity Reaction Status Date / Time Sulfa (Sulfonamide Allergy Nausea Verified 02/29/16 21:57 Antibiotics) Home Medications Medication Instructions Recorded Confirmed Last Taken Type Allopurinol 1 tab PO BID 03/01/16 01/30/21 Unknown History Cholecalciferol Vit D3 [Vitamin D3 1,000 unit PO QDAY 03/01/16 01/30/21 Unknown History 1,000 UNIT TAB] Folic Acid [Folvite] 1 mg PO QDAY 03/01/16 01/30/21 Unknown History Simvastatin 1 tab PO QHS 03/01/16 01/30/21 Unknown History Albuterol Sulfate [Ventolin HFA] 2 puff IH Q4HR PRN #1 hfa.aer.ad 03/02/16 01/30/21 Unknown Rx Apixaban [Eliquis] 5 mg PO QDAY 01/30/21 01/30/21 Unknown History Pregabalin 200 mg PO QHS 01/30/21 01/30/21 Unknown History Active Meds: Active Medications Acetaminophen (Acetaminophen 325 Mg Tab) 650 mg PO Q4H PRN PRN Reason: Pain MILD(1-3)/Fever >100.5/DOWNS Famotidine (Famotidine 20 Mg/2 Ml Inj) 20 mg IV BID [facility] Folic Acid (Folic Acid 1 Mg Tab) 1 mg PO QDAY [facility] Sodium Chloride (Nacl 0.9% 1000 Ml) 1,000 mls @ 125 mls/hr IV DIRECT TERRI Miscellaneous Medication (Apixaban) 5 mg PO QDAY [facility] Miscellaneous Medication (Simvastatin [Simvastatin]) 1 tab PO QHS [facility] Morphine Sulfate (Morphine 4 Mg/1 Ml Inj) 4 mg IV Q4H PRN PRN Reason: Pain , Severe (7-10) Morphine Sulfate (Morphine 2 Mg/1 Ml Inj) 2 mg IV Q4H PRN PRN Reason: Pain, Moderate (4-6) Ondansetron HCl (Ondansetron 4 Mg/2 Ml Inj) 4 mg IV Q8H PRN PRN Reason: Nausea And Vomiting Sodium Chloride (Sodium Chloride 0.9% 10 Ml Flush Syringe) 10 ml IV BID [facility] Sodium Chloride (Sodium Chloride 0.9% 10 Ml Flush Syringe) 10 ml IV PRN PRN PRN Reason: LINE FLUSH Review of Systems All systems: negative Constitutional: fatigue, malaise, lethargy, other (Altered mental status) Cardiovascular: shortness of breath, dyspnea on exertion Respiratory: shortness of breath, dyspnea on exertion Exam - Constitutional Vitals: Temp Pulse Resp BP Pulse Ox 98 F 80 20 90/51 100 04/22/22 00:53 04/22/22 03:09 04/22/22 02:15 04/22/22 03:09 04/22/22 03:21 General appearance: Present: mild distress, well-nourished - EENT Eyes: Present: PERRL ENT: hearing intact, clear oral mucosa - Neck Neck: Present: supple, normal ROM - Respiratory Respiratory effort: normal Respiratory: bilateral: diminished - Cardiovascular Heart Sounds: Present: S1 & S2. Absent: rub, click - Extremities Extremities: pulses symmetrical, No edema Peripheral Pulses: within normal limits - Abdominal General gastrointestinal: Present: soft, non-tender, non-distended, normal bowel sounds Female genitourinary: Present: normal - Integumentary Integumentary: Present: clear, warm, dry - Musculoskeletal Musculoskeletal: gait normal, strength equal bilaterally - Neurologic Neurologic: CNII-XII intact, moves all extremities, other (Patient is altered mental status) HEART Score - HEART Score Troponin: Troponin T < 0.010 ng/mL (0.00-0.029) 04/22/22 02:01 Results - Labs CBC & Chem 7: 04/22/22 02:01 04/22/22 02:01 Labs: Laboratory Last Values WBC 7.5 K/mm3 (4.5-11.0) 04/22/22 02:01 RBC 4.28 M/mm3 (3.65-5.03) 04/22/22 02:01 Hgb 13.8 gm/dl (10.1-14.3) 04/22/22 02:01 Hct 41.6 % (30.3-42.9) 04/22/22 02:01 MCV 97 fl (79-97) 04/22/22 02:01 MCH 32 pg (28-32) 04/22/22 02:01 MCHC 33 % (30-34) 04/22/22 02:01 RDW 13.9 % (13.2-15.2) 04/22/22 02:01 Plt Count 211 K/mm3 (140-440) 04/22/22 02:01 Lymph % (Auto) 51.6 % (13.4-35.0) H 04/22/22 02:01 [place] % (Auto) 4.6 % (0.0-7.3) 04/22/22 02:01 Eos % (Auto) 0.7 % (0.0-4.3) 04/22/22 02:01 Baso % (Auto) 0.3 % (0.0-1.8) 04/22/22 02:01 Lymph # (Auto) 3.9 K/mm3 (1.2-5.4) 04/22/22 02:01 [place] # (Auto) 0.3 K/mm3 (0.0-0.8) 04/22/22 02:01 Eos # (Auto) 0.1 K/mm3 (0.0-0.4) 04/22/22 02:01 Baso # (Auto) 0.0 K/mm3 (0.0-0.1) 04/22/22 02:01 Seg Neutrophils % 42.8 % (40.0-70.0) 04/22/22 02:01 Seg Neutrophils # 3.2 K/mm3 (1.8-7.7) 04/22/22 02:01 ABG pH 7.303 pH Units (7.350-7.450) L 04/22/22 01:50 ABG pCO2 36.0 mm Hg 04/22/22 01:50 ABG pO2 141.5 mm Hg (80.0-90.0) H 04/22/22 01:50 ABG HCO3 17.5 mmol/L (20.0-26.0) L 04/22/22 01:50 ABG O2 Saturation 98.6 % (95.0-99.0) 04/22/22 01:50 ABG O2 Content 19.5 (0.0-44) 04/22/22 01:50 ABG Base Excess -8.1 mmol/L (-2.0-3.0) L 04/22/22 01:50 ABG Hemoglobin 14.2 gm/dl (12.0-16.0) 04/22/22 01:50 ABG Carboxyhemoglobin 1.4 % (0.0-5.0) 04/22/22 01:50 ABG Methemoglobin 0.5 % (0.0-1.5) 04/22/22 01:50 Oxyhemoglobin 96.8 % (95.0-99.0) 04/22/22 01:50 FiO2 60 % 04/22/22 01:50 Sodium 131 mmol/L (137-145) L 04/22/22 02:01 Potassium 5.8 mmol/L (3.6-5.0) H 04/22/22 02:01 Chloride 100.1 mmol/L (98-107) 04/22/22 02:01 Carbon Dioxide 20 mmol/L (22-30) L 04/22/22 02:01 Anion Gap 17 mmol/L 04/22/22 02:01 BUN 40 mg/dL (7-17) H 04/22/22 02:01 Creatinine 3.1 mg/dL (0.6-1.2) H 04/22/22 02:01 Estimated GFR 18 ml/min 04/22/22 02:01 BUN/Creatinine Ratio 13 % 04/22/22 02:01 Glucose 172 mg/dL (65-100) H 04/22/22 02:01 Lactic Acid 2.20 mmol/L (0.7-2.0) H* 04/22/22 02:01 Calcium 9.5 mg/dL (8.4-10.2) 04/22/22 02:01 Total Bilirubin 0.50 mg/dL (0.1-1.2) 04/22/22 02:01 AST 30 units/L (5-40) 04/22/22 02:01 ALT 22 units/L (7-56) 04/22/22 02:01 Alkaline Phosphatase 92 units/L (35-129) 04/22/22 02:01 Ammonia 16.0 umol/L (25-60) L 04/22/22 02:01 Total Creatine Kinase 184 units/L (30-135) H 04/22/22 02:01 Troponin T < 0.010 ng/mL (0.00-0.029) 04/22/22 02:01 Total Protein 9.5 g/dL (6.3-8.2) H 04/22/22 02:01 Albumin 4.0 g/dL (3.9-5) 04/22/22 02:01 Albumin/Globulin Ratio 0.7 % 04/22/22 02:01 Urine Color [place] (Yellow) 04/22/22 03:31 Urine Turbidity Cloudy (Clear) 04/22/22 03:31 Urine pH 5.0 (5.0-7.0) 04/22/22 03:31 Ur Specific [place] 1.023 (1.003-1.030) 04/22/22 03:31 Urine Protein 30 mg/dl mg/dL (Negative) 04/22/22 03:31 Urine Glucose (UA) Neg mg/dL (Negative) 04/22/22 03:31 Urine Ketones Neg mg/dL (Negative) 04/22/22 03:31 Urine Blood Neg (Negative) 04/22/22 03:31 Urine Nitrite Neg (Negative) 04/22/22 03:31 Urine Bilirubin Neg (Negative) 04/22/22 03:31 Urine Urobilinogen < 2.0 mg/dL (<2.0) 04/22/22 03:31 Ur Leukocyte Esterase Neg (Negative) 04/22/22 03:31 Urine WBC (Auto) 7.0 /HPF (0.0-6.0) H 04/22/22 03:31 Urine RBC (Auto) 11.0 /HPF (0.0-6.0) 04/22/22 03:31 U Epithel Cells (Auto) 16.0 /HPF (0-13.0) H 04/22/22 03:31 Urine Bacteria (Auto) 1+ /HPF (Negative) 04/22/22 03:31 Hyaline Casts 9 /LPF 04/22/22 03:31 Urine Mucus Few /HPF 04/22/22 03:31 - Imaging and Cardiology Chest x-ray: report reviewed CT Scan - head: report reviewed Assessment and Plan VTE prophylaxis?: Chemical Plan of care discussed with patient/family: Yes - Patient Problems (1) Acute respiratory failure Current Visit: Yes Status: Acute Plan to address problem: Admit the patient to the ICU. Patient is status post intubation. DuoNeb by nebulizer every 4 hours. Albuterol via nebulizer every 4 hours as needed. Reconsult pulmonary and critical care for evaluation (2) Acute metabolic encephalopathy Current Visit: Yes Status: Acute Plan to address problem: At acute metabolic encephalopathy secondary to respiratory failure, kidney disease and pain medication. Patient is a status post intubation. DuoNeb via nebulizer every 4 hours. Albuterol via nebulizer every 4 hours as needed. Will consult nephrology as well as critical care evaluation (3) Elevated lactic acid level Current Visit: Yes Status: Acute Plan to address problem: Normal saline at the rate of 125 cc/h. Rocephin 2 g IV daily. We will repeat the lactic acid and BMP in the morning (4) Hyperkalemia Current Visit: Yes Status: Acute Plan to address problem: Patient already got insulin, calcium gluconate, Kayexalate and D50. Normal saline at the rate of 125 cc/h we will consult nephrology for evaluation. Recheck BMP in the morning (5) NAZ (acute kidney injury) Current Visit: No Status: Acute Plan to address problem: Normal saline at the rate of 125 cc/h we will consult nephrology for evaluation. Avoid nephrotoxic drug. Recheck BMP in the morning (6) Dementia Current Visit: No Status: Acute Plan to address problem: Stable. We continue the home medication (7) DVT prophylaxis Current Visit: No Status: Acute Plan to address problem: Eliquis 5 mg p.o. twice daily for DVT prophylaxis. Pepcid 20 mg IV every 12 hours for GI prophylaxis. Patient is a full code
[2022-04-22] MEDS: cefTRIAXone/NS 2 GM/100 ML 2 GM/100 ML BAG IV SCH (06:40)
[2022-04-22 06:43] LABS: Calcium 8.4 mg/dL (8.4-10.2)
--- NOTE | 2022-04-22 08:22 | Consultation ---
History of Present Illness Consult date: 04/22/22 Requesting physician: YONY BARFIELD Reason for consult: hypoxemia History of present illness: 76 y/o female with prior history of CVA and dementia, admitted over a year ago with altered mental state and UTI admitted to ICU on mechanical ventilatory support after being found by EMS with a sat in the 40's and had to be bagged coming in. Intubated in the ED by ER physician. STarted on Rocephin. No sedation. No white count, no fever. This am patient is awake and alert. Following commands and is appropriate. Not on sedation on FiO2 of 45%. UA was significant for WBC's but negative leuk esterase and negative nitrite. When patient was admitted over a year ago she had a UTI then. Per patient she did answer yes to increase frequency of urination but no burning. no family present at bedside. Past History Past Medical History: COPD, hypertension, renal failure, other (Asthma, kidney disease, sciatic nerve pain) Past Surgical History: hysterectomy Social history: no significant social history Family history: hypertension Medications and Allergies Allergies Allergy/AdvReac Type Severity Reaction Status Date / Time Sulfa (Sulfonamide Allergy Nausea Verified 02/29/16 21:57 Antibiotics) Home Medications Medication Instructions Recorded Confirmed Last Taken Type Allopurinol 1 tab PO BID 03/01/16 01/30/21 Unknown History Cholecalciferol Vit D3 [Vitamin D3 1,000 unit PO QDAY 03/01/16 01/30/21 Unknown History 1,000 UNIT TAB] Folic Acid [Folvite] 1 mg PO QDAY 03/01/16 01/30/21 Unknown History Simvastatin 1 tab PO QHS 03/01/16 01/30/21 Unknown History Albuterol Sulfate [Ventolin HFA] 2 puff IH Q4HR PRN #1 hfa.aer.ad 03/02/16 01/30/21 Unknown Rx Apixaban [Eliquis] 5 mg PO QDAY 01/30/21 01/30/21 Unknown History Pregabalin 200 mg PO QHS 01/30/21 01/30/21 Unknown History Active Meds: Active Medications Acetaminophen (Acetaminophen 325 Mg Tab) 650 mg PO Q4H PRN PRN Reason: Pain MILD(1-3)/Fever >100.5/DOWNS Apixaban (Apixaban 5 Mg Tab) 5 mg PO QDAY [facility] Famotidine (Famotidine 20 Mg/2 Ml Inj) 20 mg IV DAILY [facility] Folic Acid (Folic Acid 1 Mg Tab) 1 mg PO QDAY [facility] Sodium Chloride (Nacl 0.9% 1000 Ml) 1,000 mls @ 125 mls/hr IV DIRECT TERRI Ceftriaxone Sodium (Rocephin/Ns 2 Gm/100 Ml) 2 gm in 100 mls @ 200 mls/hr IV Q24H [facility]; Protocol Last Admin: 04/22/22 06:40 Dose: 200 mls/hr Morphine Sulfate (Morphine 4 Mg/1 Ml Inj) 4 mg IV Q4H PRN PRN Reason: Pain , Severe (7-10) Morphine Sulfate (Morphine 2 Mg/1 Ml Inj) 2 mg IV Q4H PRN PRN Reason: Pain, Moderate (4-6) Ondansetron HCl (Ondansetron 4 Mg/2 Ml Inj) 4 mg IV Q8H PRN PRN Reason: Nausea And Vomiting Pravastatin Sodium (Pravastatin 80 Mg Tab) 80 mg PO QHS [facility] Sodium Chloride (Sodium Chloride 0.9% 10 Ml Flush Syringe) 10 ml IV BID [facility] Sodium Chloride (Sodium Chloride 0.9% 10 Ml Flush Syringe) 10 ml IV PRN PRN PRN Reason: LINE FLUSH Review of Systems ROS unobtainable: due to endotracheal tube Physical Examination Vital signs: Vital Signs Temp Pulse Resp BP Pulse Ox 98 F 78 18 151/130 99 04/22/22 00:53 04/22/22 00:53 04/22/22 00:53 04/22/22 00:53 04/22/22 00:53 General appearance: no acute distress, alert Eyes: non-icteric ENT: other (orally intubated) Neck: supple Effort: normal Ascultation: Bilateral: clear Results - Laboratory Findings CBC and BMP: 04/22/22 02:01 04/22/22 05:59 ABG ABG pH 7.303 pH Units (7.350-7.450) L 04/22/22 01:50 ABG pCO2 36.0 mm Hg 04/22/22 01:50 ABG pO2 141.5 mm Hg (80.0-90.0) H 04/22/22 01:50 ABG O2 Saturation 98.6 % (95.0-99.0) 04/22/22 01:50 Abnormal lab findings: Abnormal Labs 04/22/22 04/22/22 04/22/22 01:50 02:01 02:01 Lymph % (Auto) 51.6 H ABG pH 7.303 L ABG pO2 141.5 H ABG HCO3 17.5 L ABG Base Excess -8.1 L Sodium 131 L Potassium 5.8 H Chloride Carbon Dioxide 20 L BUN 40 H Creatinine 3.1 H Glucose 172 H Lactic Acid Ammonia Total Creatine Kinase 184 H Total Protein 9.5 H Urine WBC (Auto) U Epithel Cells (Auto) 04/22/22 04/22/22 04/22/22 02:01 02:01 03:31 Lymph % (Auto) ABG pH ABG pO2 ABG HCO3 ABG Base Excess Sodium Potassium Chloride Carbon Dioxide BUN Creatinine Glucose Lactic Acid 2.20 H* Ammonia 16.0 L Total Creatine Kinase Total Protein Urine WBC (Auto) 7.0 H U Epithel Cells (Auto) 16.0 H 04/22/22 05:59 Lymph % (Auto) ABG pH ABG pO2 ABG HCO3 ABG Base Excess Sodium 135 L Potassium Chloride 107.1 H Carbon Dioxide 18 L BUN 39 H Creatinine 3.0 H Glucose 107 H Lactic Acid Ammonia Total Creatine Kinase Total Protein Urine WBC (Auto) U Epithel Cells (Auto) - Diagnostic Findings Chest x-ray: image reviewed (clear lung patel) Additional studies: Per rads, negative head CT Assessment and Plan 76 y/o female with acute respiratory failure secondary to altered mental state possibly from infectious source in urine. 1. Continue Rocephin 2. If urine culture was not sent, will order 3. Extubate now given improvement in mental state 4. Per chart, patient has COPD but no medications for COPD listed, will follow up once extubated 5. Saw renal on last hospital admit, will see if consult is needed once extubated 6. Once extubated and monitored for a few hours, can likely be transitioned to the floor, maybe with remote tele. CCT 31 minutes.
[2022-04-22] MEDS ORDERED: FAMOTIDINE 20 MG/2 ML INJ IV SCH ×2 (10:00)
[2022-04-22] MEDS ORDERED: NON-FORMULARY EACH (Apixaban 5 MG Tablet) PO SCH (10:00)
[2022-04-22] MEDS ORDERED: APIXABAN 5 MG TAB PO SCH (10:00)
--- NOTE | 2022-04-22 10:53 | Consultation ---
History of Present Illness - Reason for Consult Consult date: 04/22/22 acute renal failure, hyperkalemia Requesting physician: CLAUS RO - History of Present Illness 76-year-old lady with a history of hypertension COPD presumed chronic kidney disease presents on account of dyspnea with altered mental status. Patient observed by family to be less active/alert over several days with decreasing appetite. EMS was called and patient was found to be obtunded with agonal respirations and a thready pulse. Bag valve mask ventilation was started and she was given Narcan and brought to the ER. Patient was intubated by the physician in the emergency room started on IV fluids and Rocephin. Blood pressure was as low as 83/50 with potassium high at 5.8 mmol/L, BUN/creatinine elevated at 40/3.4 mg/dL lactic acid also high at 2.2. Urinalysis showed 30 mg protein per deciliter WBC 7 RBC 11, bacteria plus with 16 squamous epithelial cells suggesting a contaminated specimen. Nitrites and leukocyte esterase were negative. I am consulted to assist in managing kidney injury, acid-base and fluid and electrolyte abnormalities. Past History Past Medical History: COPD, hypertension, hyperlipidemia, renal failure, other (Asthma, kidney disease, sciatic nerve pain, gouty arthritis) Past Surgical History: hysterectomy Social history: no significant social history Family history: hypertension Medications and Allergies Allergies Allergy/AdvReac Type Severity Reaction Status Date / Time Sulfa (Sulfonamide Allergy Nausea Verified 02/29/16 21:57 Antibiotics) Home Medications Medication Instructions Recorded Confirmed Last Taken Type Allopurinol 1 tab PO BID 03/01/16 01/30/21 Unknown History Cholecalciferol Vit D3 [Vitamin D3 1,000 unit PO QDAY 03/01/16 01/30/21 Unknown History 1,000 UNIT TAB] Folic Acid [Folvite] 1 mg PO QDAY 03/01/16 01/30/21 Unknown History Simvastatin 1 tab PO QHS 03/01/16 01/30/21 Unknown History Albuterol Sulfate [Ventolin HFA] 2 puff IH Q4HR PRN #1 hfa.aer.ad 03/02/16 01/30/21 Unknown Rx Apixaban [Eliquis] 5 mg PO QDAY 01/30/21 01/30/21 Unknown History Pregabalin 200 mg PO QHS 01/30/21 01/30/21 Unknown History Active Meds: Active Medications Acetaminophen (Acetaminophen 325 Mg Tab) 650 mg PO Q4H PRN PRN Reason: Pain MILD(1-3)/Fever >100.5/DOWNS Apixaban (Apixaban 5 Mg Tab) 5 mg PO QDAY [facility] Famotidine (Famotidine 20 Mg/2 Ml Inj) 20 mg IV DAILY [facility] Folic Acid (Folic Acid 1 Mg Tab) 1 mg PO QDAY [facility] Sodium Chloride (Nacl 0.9% 1000 Ml) 1,000 mls @ 125 mls/hr IV DIRECT TERRI Ceftriaxone Sodium (Rocephin/Ns 2 Gm/100 Ml) 2 gm in 100 mls @ 200 mls/hr IV Q24H [facility]; Protocol Last Admin: 04/22/22 06:40 Dose: 200 mls/hr Morphine Sulfate (Morphine 4 Mg/1 Ml Inj) 4 mg IV Q4H PRN PRN Reason: Pain , Severe (7-10) Morphine Sulfate (Morphine 2 Mg/1 Ml Inj) 2 mg IV Q4H PRN PRN Reason: Pain, Moderate (4-6) Ondansetron HCl (Ondansetron 4 Mg/2 Ml Inj) 4 mg IV Q8H PRN PRN Reason: Nausea And Vomiting Pravastatin Sodium (Pravastatin 80 Mg Tab) 80 mg PO QHS [facility] Sodium Chloride (Sodium Chloride 0.9% 10 Ml Flush Syringe) 10 ml IV BID [facility] Sodium Chloride (Sodium Chloride 0.9% 10 Ml Flush Syringe) 10 ml IV PRN PRN PRN Reason: LINE FLUSH Review of Systems ROS unobtainable: due to endotracheal tube Exam - Vital Signs Vital signs: Vital Signs Temp Pulse Resp BP Pulse Ox 98 F 78 18 151/130 99 04/22/22 00:53 04/22/22 00:53 04/22/22 00:53 04/22/22 00:53 04/22/22 00:53 - Physical Exam Narrative exam: Elderly -[place] female lying in bed intubated on ventilator HEENT: NCAT, endotracheal tube intact Neck: Supple, no venous distention CVS: S1S2 RRR with no murmur, rub or gallop Chest: Diminished breath sounds bilaterally Abdomen: Obese, soft, nontender, no organomegaly, bowel sounds are present Extremities: No edema Genitourinary deferred Skin warm and dry Neuro: Awake, alert, following simple commands Results - Lab Results 04/22/22 02:01 04/22/22 05:59 Most recent lab results ABG pH 7.303 pH Units (7.350-7.450) L 04/22/22 01:50 ABG pCO2 36.0 mm Hg 04/22/22 01:50 ABG pO2 141.5 mm Hg (80.0-90.0) H 04/22/22 01:50 ABG HCO3 17.5 mmol/L (20.0-26.0) L 04/22/22 01:50 ABG O2 Saturation 98.6 % (95.0-99.0) 04/22/22 01:50 Calcium 8.4 mg/dL (8.4-10.2) 04/22/22 05:59 Assessment and Plan - Patient Problems (1) Lactic acidosis Current Visit: Yes Status: Acute Plan to address problem: Lactic acidosis secondary to hypoperfusion with low blood pressure on presentation. Blood pressure improved with volume expansion. Follow-up lactic acid level (2) Acute metabolic encephalopathy Current Visit: Yes Status: Acute Plan to address problem: Multifactorial etiology. Improving with treatment. (3) Acute respiratory failure Current Visit: Yes Status: Acute Plan to address problem: Patient being seen by pulmonary (4) Hyperkalemia Current Visit: Yes Status: Acute Plan to address problem: Secondary to decreased distal delivery of sodium with volume depletion and also transcellular shift with acidosis. Potassium being treated aggressively me dically and is improved to 4.7. Continue to follow-up potassium (5) NAZ (acute kidney injury) Current Visit: No Status: Acute Plan to address problem: Patient may well have baseline chronic kidney disease with superimposed acute kidney injury prerenal azotemia versus acute tubular necrosis secondary to hypotension. Get kidney ultrasound. Quantify proteinuria. Follow-up electrolytes and renal function (6) Dementia Current Visit: No Status: Acute Plan to address problem: Baseline dementia. We will need records to ascertain baseline
--- NOTE | 2022-04-22 13:05 | Progress Note ---
Assessment and Plan Assessment and plan: History of present illness: 76-year-old female brought in by EMS from home for altered mental status. Per family patient has been less active and alert over the past several days with very little appetite. EMS reports patient was obtunded had agonal respirations and thready pulse on scene and began [id number] ventilation. Narcan was given with no response. As per patient took some pain medication at 10:30 PM In the emergency room patient is found to have potassium of 5.8, BUN 40 creatinine 3.1 and lactic acid 2.2, ABG shows 7.303, PCO2 36.0, PO2 141.5 bicarb 17.5 O2 sat [address] head shows no acute intracranial abnormality. Chest x-ray shows no evidence of acute cardiopulmonary disease. So going to admit the patient to the ICU consult critical care as well as nephrology for evaluation Hospital Course: 04/21: Suspect encephalopathy 2/2 medication. Now following commands on vent. D/w traffic coordinator Dr. Casillas. Plan for CPAP trial and potential extubation today. Patient can likely be transferred to floor this evening or tomorrow a.m. if she remains stable. Assessment and Plan: #Acute respiratory failure with hypoxia #Chronic obstructive pulmonary disease Intubated for airway protection due to encephalopathy -ABG 7.3/36/141.5/17.5 on FiO2 60% -DuoNeb treatments Chest x-ray demonstrates endotracheal tube and esophogastric tube with appropriate placement. Interval increase in nodular airspace opacity. -History of COPD per charting however no medications noted. Will need to clarify if patient uses any GOLD guideline maintenance therapy -Health Information Technician consulted, recommends possible extubation today. Patient placed on CPAP trial currently off sedation. #Acute metabolic encephalopathy #Dementia #Urinary tract infection -Encephalopathy likely multifactorial medication induced (takes pregabalin) in the setting of urinary tract infection and chronic dementia. -Patient did admit to polyuria but denied any dysuria. -Rocephin IV, recommend 3 to 5 days total therapy. Patient does not appear septic -Urine culture pending -CT brain no acute intracranial abnormality -Awake following Commands on encounter. -Continue to hold any sedating medications at this time. #Acute kidney injury on chronic kidney disease due to vasomotor nephropathy #Hyperkalemia -GFR 18, creatinine 3.1. Baseline appears to be 1.5 per chart review of January 2021 visit. K5.8, currently 4.7. Was given Kayexalate on admission Strict intake and output Nephrology consulted #Hypertension History of hypertension documented, do not see any antihypertensive medication -Normotensive thus far this admission, will hold antihypertensive therapy at this time. #Hyperlipidemia Resume simvastatin #Gouty arthritis -On pregabalin and allopurinol, please hold both medication #Morbid Obesity - BMI 39.4 - Counseled patient on the importance of weight loss, incorporating exercise, and dietary changes (lean meats, fresh fruits and vegetables, and water intake). Patient expresses understanding. - Time: +15 min The high probability of a clinically significant, sudden or life threatening deterioration of the [multi] system(s) required my full and direct attention, intervention and personal management. The aggregate critical care time was [60] minutes. This time is in addition to time spent performing reported procedures but includes the following: [x] Data Review and interpretation [x] Patient assessment and monitoring of vital signs [x] Documentation [x] Medication orders and management History Interval history: Intubated. Follows simple yes no commands on ventilator. Hospitalist Physical - Physical exam Narrative exam: Physical Exam: VITAL SIGNS: Reviewed. GENERAL: The patient appears normally developed, Vital signs as documented. Obese. Intubated HEAD: No signs of head trauma. EYES: Pupils are equal. Extraocular motions intact. EARS: Hearing grossly intact. MOUTH: Oropharynx is normal. ET tube in place NECK: No adenopathy, no JVD. CHEST: Diminished breath sounds bilaterally CARDIAC: Regular rate and rhythm. S1 and S2, without murmurs, gallops, or rubs. VASCULAR: No Edema. Peripheral pulses normal and equal in all extremities. ABDOMEN: Soft, non tender and non distended. No rebound or guarding, and no masses palpated. Bowel Sounds normal. MUSCULOSKELETAL: Good range of motion of all major joints. Extremities without clubbing, cyanosis or edema. NEUROLOGIC EXAM: Alert and awake, following commands on ventilator and off sedation. No focal sensory or strength deficits. PSYCHIATRIC: Mood normal. SKIN: detail exam as documented in skin assessment - Constitutional Vitals: Temp Pulse Resp BP Pulse Ox 97.8 F 86 14 120/62 100 04/22/22 12:00 04/22/22 12:11 04/22/22 12:11 04/22/22 12:11 04/22/22 12:11 General appearance: Present: mild distress, well-nourished HEART Score - HEART Score Troponin: Troponin T < 0.010 ng/mL (0.00-0.029) 04/22/22 02:01 Results - Labs CBC & Chem 7: 04/22/22 02:01 04/22/22 05:59 Labs: Laboratory Last Values WBC 7.5 K/mm3 (4.5-11.0) 04/22/22 02:01 RBC 4.28 M/mm3 (3.65-5.03) 04/22/22 02:01 Hgb 13.8 gm/dl (10.1-14.3) 04/22/22 02:01 Hct 41.6 % (30.3-42.9) 04/22/22 02:01 MCV 97 fl (79-97) 04/22/22 02:01 MCH 32 pg (28-32) 04/22/22 02:01 MCHC 33 % (30-34) 04/22/22 02:01 RDW 13.9 % (13.2-15.2) 04/22/22 02:01 Plt Count 211 K/mm3 (140-440) 04/22/22 02:01 Lymph % (Auto) 51.6 % (13.4-35.0) H 04/22/22 02:01 [place] % (Auto) 4.6 % (0.0-7.3) 04/22/22 02:01 Eos % (Auto) 0.7 % (0.0-4.3) 04/22/22 02:01 Baso % (Auto) 0.3 % (0.0-1.8) 04/22/22 02:01 Lymph # (Auto) 3.9 K/mm3 (1.2-5.4) 04/22/22 02:01 [place] # (Auto) 0.3 K/mm3 (0.0-0.8) 04/22/22 02:01 Eos # (Auto) 0.1 K/mm3 (0.0-0.4) 04/22/22 02:01 Baso # (Auto) 0.0 K/mm3 (0.0-0.1) 04/22/22 02:01 Seg Neutrophils % 42.8 % (40.0-70.0) 04/22/22 02:01 Seg Neutrophils # 3.2 K/mm3 (1.8-7.7) 04/22/22 02:01 ABG pH 7.303 pH Units (7.350-7.450) L 04/22/22 01:50 ABG pCO2 36.0 mm Hg 04/22/22 01:50 ABG pO2 141.5 mm Hg (80.0-90.0) H 04/22/22 01:50 ABG HCO3 17.5 mmol/L (20.0-26.0) L 04/22/22 01:50 ABG O2 Saturation 98.6 % (95.0-99.0) 04/22/22 01:50 ABG O2 Content 19.5 (0.0-44) 04/22/22 01:50 ABG Base Excess -8.1 mmol/L (-2.0-3.0) L 04/22/22 01:50 ABG Hemoglobin 14.2 gm/dl (12.0-16.0) 04/22/22 01:50 ABG Carboxyhemoglobin 1.4 % (0.0-5.0) 04/22/22 01:50 ABG Methemoglobin 0.5 % (0.0-1.5) 04/22/22 01:50 Oxyhemoglobin 96.8 % (95.0-99.0) 04/22/22 01:50 FiO2 60 % 04/22/22 01:50 Sodium 135 mmol/L (137-145) L 04/22/22 05:59 Potassium 4.7 mmol/L (3.6-5.0) 04/22/22 05:59 Chloride 107.1 mmol/L (98-107) H 04/22/22 05:59 Carbon Dioxide 18 mmol/L (22-30) L 04/22/22 05:59 Anion Gap 15 mmol/L 04/22/22 05:59 BUN 39 mg/dL (7-17) H 04/22/22 05:59 Creatinine 3.0 mg/dL (0.6-1.2) H 04/22/22 05:59 Estimated GFR 18 ml/min 04/22/22 05:59 BUN/Creatinine Ratio 13 % 04/22/22 05:59 Glucose 107 mg/dL (65-100) H 04/22/22 05:59 Lactic Acid 1.10 mmol/L (0.7-2.0) 04/22/22 04:53 Calcium 8.4 mg/dL (8.4-10.2) 04/22/22 05:59 Total Bilirubin 0.50 mg/dL (0.1-1.2) 04/22/22 02:01 AST 30 units/L (5-40) 04/22/22 02:01 ALT 22 units/L (7-56) 04/22/22 02:01 Alkaline Phosphatase 92 units/L (35-129) 04/22/22 02:01 Ammonia 16.0 umol/L (25-60) L 04/22/22 02:01 Total Creatine Kinase 184 units/L (30-135) H 04/22/22 02:01 Troponin T < 0.010 ng/mL (0.00-0.029) 04/22/22 02:01 Total Protein 9.5 g/dL (6.3-8.2) H 04/22/22 02:01 Albumin 4.0 g/dL (3.9-5) 04/22/22 02:01 Albumin/Globulin Ratio 0.7 % 04/22/22 02:01 Urine Color Jocelyne (Yellow) 04/22/22 03:31 Urine Turbidity Cloudy (Clear) 04/22/22 03:31 Urine pH 5.0 (5.0-7.0) 04/22/22 03:31 Ur Specific [place] 1.023 (1.003-1.030) 04/22/22 03:31 Urine Protein 30 mg/dl mg/dL (Negative) 04/22/22 03:31 Urine Glucose (UA) Neg mg/dL (Negative) 04/22/22 03:31 Urine Ketones Neg mg/dL (Negative) 04/22/22 03:31 Urine Blood Neg (Negative) 04/22/22 03:31 Urine Nitrite Neg (Negative) 04/22/22 03:31 Urine Bilirubin Neg (Negative) 04/22/22 03:31 Urine Urobilinogen < 2.0 mg/dL (<2.0) 04/22/22 03:31 Ur Leukocyte Esterase Neg (Negative) 04/22/22 03:31 Urine WBC (Auto) 7.0 /HPF (0.0-6.0) H 04/22/22 03:31 Urine RBC (Auto) 11.0 /HPF (0.0-6.0) 04/22/22 03:31 U Epithel Cells (Auto) 16.0 /HPF (0-13.0) H 04/22/22 03:31 Urine Bacteria (Auto) 1+ /HPF (Negative) 04/22/22 03:31 Hyaline Casts 9 /LPF 04/22/22 03:31 Urine Mucus Few /HPF 04/22/22 03:31 Microbiology: Microbiology 04/22/22 02:01 Peripheral/Venous Blood Culture - Preliminary Culture in Progress 04/22/22 01:53 Peripheral/Venous Blood Culture - Preliminary Culture in Progress 04/22/22 06:11 Stool Stool Occult Blood (ADDISON) - Final Bashir/IV: Voiding Method Indwelling Catheter Active Medications - Current Medications Current Medications: Generic Name Dose Route Start Last Admin Trade Name Freq PRN Reason Stop Dose Admin Acetaminophen 650 mg 04/22/22 04:21 Acetaminophen 325 Mg Tab PO Q4H PRN Pain MILD(1-3)/Fever >100.5/DOWNS Apixaban 5 mg 04/22/22 10:00 Apixaban 5 Mg Tab PO QDAY [facility] Famotidine 20 mg 04/22/22 10:00 Famotidine 20 Mg/2 Ml Inj IV DAILY TERRI Folic Acid 1 mg 04/22/22 10:00 Folic Acid 1 Mg Tab PO QDAY [facility] Sodium Chloride 1,000 mls @ 125 mls/hr 04/22/22 04:30 Nacl 0.9% 1000 Ml IV DIRECT [facility] Ceftriaxone Sodium 2 gm in 100 mls @ 200 mls/hr 04/22/22 05:00 04/22/22 06:40 Rocephin/Ns 2 Gm/100 Ml IV 200 mls/hr Q24H [facility] Administration Protocol Morphine Sulfate 4 mg 04/22/22 04:21 Morphine 4 Mg/1 Ml Inj IV Q4H PRN Pain , Severe (7-10) Morphine Sulfate 2 mg 04/22/22 04:21 Morphine 2 Mg/1 Ml Inj IV Q4H PRN Pain, Moderate (4-6) Ondansetron HCl 4 mg 04/22/22 04:21 Ondansetron 4 Mg/2 Ml Inj IV Q8H PRN Nausea And Vomiting Pravastatin Sodium 80 mg 04/22/22 22:00 Pravastatin 80 Mg Tab PO QHS TERRI Sodium Chloride 10 ml 04/22/22 10:00 Sodium Chloride 0.9% 10 Ml Flush Syringe IV BID TERRI Sodium Chloride 10 ml 04/22/22 04:21 Sodium Chloride 0.9% 10 Ml Flush Syringe IV PRN PRN LINE FLUSH Nutrition/Malnutrition Assess - Dietary Evaluation Nutrition/Malnutrition Findings: Nutrition Notes Start: 04/22/22 11:36 Freq: Status: Active Protocol: Document 04/22/22 11:36 NHALL (Rec: 04/22/22 11:44 NHALL [id number]) Nutrition Notes Need for Assessment generated from: MD Order,outpatient clerk,MST, Education Initial or Follow up Assessment Current Diagnosis Acute Kidney Injury,COPD, Hypertension,Respiratory Failure Other Pertinent Diagnosis AMS Current Diet NPO Labs/Tests Na 135 BUN 39 Cr 3 Pertinent Medications Folvite, NS at 125ml/hr Height 5 ft 7 in Weight 114.2 kg [place] Body Weight (kg) 61.36 BMI 39.4 Intake Prior to Admission Poor Weight Status Obese Subjective/Other Information RD consulted for diet education; pt not appropriate for diet education. Pt extubated this am. PMHx includes dementia and asthma. Per pt records, pt less active and alert with decreased PO intake over past several days. Pt also screened for malnutrition risk . Burn Absent Trauma Absent Skin Integrity/Comment No skin breakdown reported Minimum of two criteria No Energy Intake (non-severe) <75% Estimated Energy Requirement >7 days #1 Nutrition Diagnosis Inadequate oral intake [facility]/p recent extubation As Evidenced by Signs and Symptoms pt NPO Is patient on ventilator? No Is Patient Ambulatory and/or Out of Bed No REE-([facility]-confined to bed) 2002.472 Kcal/Kg value to use for calculation 13 Approximate Energy Requirements Using 1485 kcal/Kg Calculation Used for Recommendations Kcal/kg Additional Notes Pro needs 0.8-1.2g/kg adjBW: 70-105g/day Fluid needs 1ml/kcal Nutrition Intervention Change Diet Order: Diet advancement when medically feasible Goal #1 Advance diet to meet nutrient needs Anticipated Discharge Needs: None identified at this time Follow-Up By: 04/24/22 Additional Comments F/U: diet advancement
[2022-04-22] MEDS: FOLIC ACID 1 MG TAB PO SCH (13:15)
[2022-04-22 14:30] LABS: Creatinine,Urine 141.6 mg/dL (0.1-20.0)
--- NOTE | 2022-04-22 16:28 | Ultrasound Report ---
ULTRASOUND RENAL INDICATION: Acute kidney injury. COMPARISON: Prior CT abdomen/pelvis 01/31/2020 10. FINDINGS: RIGHT KIDNEY: Size: 9.9 x 4.2 x 3.9 cm. Echogenicity: Normal. Cortical thickness: 1.4 cm. Hydronephrosis: None. Cyst or mass: None. Stones: None. LEFT KIDNEY: Size: 9.8 x 4.4 x 3.8 cm. Echogenicity: Normal. Cortical thickness: 1.2 cm. Hydronephrosis: None. Cyst or mass: None. Stones: None. Urinary Bladder: No significant abnormality. Free Fluid: None. Additional Findings: None. IMPRESSION 1. No acute sonographic abnormality of the kidneys. 2. Age appropriate appearance of the kidneys with diffuse bilateral cortical thinning. Signer Name: Isabelle Alcazar MD Signed: 04/22/2022 4:23 PM Workstation Name: [id number]
--- NOTE | 2022-04-22 16:50 | Electrocardiograph Report ---
[facility] Test Date: 2022-04-22 Test Time: 04:04:32 Pat Name: REYNALDO WILLIS Department: Room: A262 1 Gender: F Senior [employer] Developer: VICENTA : [id number] Requested By: YONY BARFIELD Order Number: [id number] Reading MD: Simone Patel Measurements Intervals [place] Rate: 81 P: 30 [place]: 183 QRS: 57 QRSD: 79 T: 58 QT: 418 QTc: 479 Interpretive Statements Sinus rhythm Atrial premature complex Early repolarization ST changes Compared to ECG 01/30/2021 02:19:18 Atrial premature complex(es) now present Electronically Signed On 04-22-2022 16:50:15 EDT by Simone Patel
[2022-04-22] MEDS: PRAVASTATIN 80 MG TAB PO SCH (21:07)
[2022-04-22] MEDS ORDERED: NON-FORMULARY EACH (Simvastatin [Simvastatin] 40 MG Tablet) PO SCH (22:00)
[2022-04-23 04:44] LABS: Basophils % (Auto) 0.4 % (0.0-1.8); Eosinophils # (Auto) 0.1 K/mm3 (0.0-0.4); Eosinophils % (Auto) 1.1 % (0.0-4.3); Hematocrit 36.7 % (30.3-42.9); Hemoglobin 12.5 gm/dl (10.1-14.3); Lymphocytes # (Auto) 2.8 K/mm3 (1.2-5.4); Lymphocytes % (Auto) 31.7 % (13.4-35.0); Mean Corpuscular HGB Conc 34 % (30-34); Mean Corpuscular Volume 95 fl (79-97); Monocytes # (Auto) 0.5 K/mm3 (0.0-0.8); Platelet Count 171 K/mm3 (140-440); Red Blood Count 3.85 M/mm3 (3.65-5.03); Red Cell Distribution Width 13.5 % (13.2-15.2)
[2022-04-23] MEDS: cefTRIAXone/NS 2 GM/100 ML 2 GM/100 ML BAG IV SCH (04:54)
[2022-04-23 05:09] LABS: Albumin 3.3 g/dL (3.9-5); Calcium 8.9 mg/dL (8.4-10.2)
--- NOTE | 2022-04-23 08:47 | Progress Note ---
<[place] - Last Filed: 04/23/22 16:08> Assessment and Plan - Patient Problems (1) Acute metabolic encephalopathy Current Visit: Yes Status: Acute Plan to address problem: Has AMS on admission-Likely dementia/UTI Improved-patient alert and verbal-on room air Re-orient as needed Continue Rocephin IV, recommend 3 to 5 days total therapy. Patient does not appear septic Urine culture pending CT brain no acute intracranial abnormality (2) UTI (urinary tract infection) Current Visit: No Status: Acute Plan to address problem: continue Rocephin IV, recommend 3 to 5 days total therapy. Patient does not appear septic Urine culture pending. (3) Acute respiratory failure Current Visit: Yes Status: Acute Plan to address problem: S/p extubation-on room air-no acute distress monitor oxygen sat PRN (4) Obesity Current Visit: Yes Status: Acute Plan to address problem: Discussed healthy diet-including more fruits and vegetable Advised to avoid fried foods and food rich in concentrated sweetners (5) Acute renal failure Current Visit: Yes Status: Acute Plan to address problem: monitor kidney function-likely 2/2 hypotension/pre-renal azotemia Avoid nephrotoxic drugs Kidney function improving-Nephrology following-input appreciated (6) Hyperkalemia Current Visit: Yes Status: Acute Plan to address problem: Resolved Monitor kidney function and electrolytes. History Interval history: 04/23/22-patient seen at bedside. Alert and verbal. Pt is S/P extubation and on room air. 02 sat 98 to 99%. patient denies any distress. patient will be transfered to tele floor.-transfer patient to the floor-patient is stable. Hospitalist Physical - Constitutional Vitals: Temp Pulse Resp BP Pulse Ox 99.8 F H 96 H 13 124/65 98 04/23/22 04:00 04/23/22 06:00 04/23/22 06:00 04/23/22 06:00 04/23/22 06:00 General appearance: Present: mild distress, obese - EENT Eyes: Present: EOM intact - Respiratory Respiratory: bilateral: CTA - Extremities Extremities: No edema - Abdominal General gastrointestinal: soft, non-tender - Integumentary Integumentary: Present: clear, warm, dry - Psychiatric Psychiatric: cooperative - Allied Health Allied health notes reviewed: nursing, PT HEART Score - HEART Score Troponin: Troponin T < 0.010 ng/mL (0.00-0.029) 04/22/22 02:01 Results - Labs CBC & Chem 7: 04/23/22 04:23 04/23/22 04:23 Labs: Laboratory Last Values WBC 8.8 K/mm3 (4.5-11.0) 04/23/22 04:23 RBC 3.85 M/mm3 (3.65-5.03) 04/23/22 04:23 Hgb 12.5 gm/dl (10.1-14.3) 04/23/22 04:23 Hct 36.7 % (30.3-42.9) 04/23/22 04:23 MCV 95 fl (79-97) 04/23/22 04:23 MCH 32 pg (28-32) 04/23/22 04:23 MCHC 34 % (30-34) 04/23/22 04:23 RDW 13.5 % (13.2-15.2) 04/23/22 04:23 Plt Count 171 K/mm3 (140-440) 04/23/22 04:23 Lymph % (Auto) 31.7 % (13.4-35.0) 04/23/22 04:23 [place] % (Auto) 6.0 % (0.0-7.3) 04/23/22 04:23 Eos % (Auto) 1.1 % (0.0-4.3) 04/23/22 04:23 Baso % (Auto) 0.4 % (0.0-1.8) 04/23/22 04:23 Lymph # (Auto) 2.8 K/mm3 (1.2-5.4) 04/23/22 04:23 [place] # (Auto) 0.5 K/mm3 (0.0-0.8) 04/23/22 04:23 Eos # (Auto) 0.1 K/mm3 (0.0-0.4) 04/23/22 04:23 Baso # (Auto) 0.0 K/mm3 (0.0-0.1) 04/23/22 04:23 Seg Neutrophils % 60.8 % (40.0-70.0) 04/23/22 04:23 Seg Neutrophils # 5.3 K/mm3 (1.8-7.7) 04/23/22 04:23 ABG pH 7.303 pH Units (7.350-7.450) L 04/22/22 01:50 ABG pCO2 36.0 mm Hg 04/22/22 01:50 ABG pO2 141.5 mm Hg (80.0-90.0) H 04/22/22 01:50 ABG HCO3 17.5 mmol/L (20.0-26.0) L 04/22/22 01:50 ABG O2 Saturation 98.6 % (95.0-99.0) 04/22/22 01:50 ABG O2 Content 19.5 (0.0-44) 04/22/22 01:50 ABG Base Excess -8.1 mmol/L (-2.0-3.0) L 04/22/22 01:50 ABG Hemoglobin 14.2 gm/dl (12.0-16.0) 04/22/22 01:50 ABG Carboxyhemoglobin 1.4 % (0.0-5.0) 04/22/22 01:50 ABG Methemoglobin 0.5 % (0.0-1.5) 04/22/22 01:50 Oxyhemoglobin 96.8 % (95.0-99.0) 04/22/22 01:50 FiO2 60 % 04/22/22 01:50 Sodium 138 mmol/L (137-145) 04/23/22 04:23 Potassium 4.7 mmol/L (3.6-5.0) 04/23/22 04:23 Chloride 108.2 mmol/L (98-107) H 04/23/22 04:23 Carbon Dioxide 19 mmol/L (22-30) L 04/23/22 04:23 Anion Gap 16 mmol/L 04/23/22 04:23 BUN 32 mg/dL (7-17) H 04/23/22 04:23 Creatinine 2.2 mg/dL (0.6-1.2) H 04/23/22 04:23 Estimated GFR 26 ml/min 04/23/22 04:23 BUN/Creatinine Ratio 15 % 04/23/22 04:23 Glucose 78 mg/dL (65-100) 04/23/22 04:23 Lactic Acid 1.10 mmol/L (0.7-2.0) 04/22/22 04:53 Calcium 8.9 mg/dL (8.4-10.2) 04/23/22 04:23 Total Bilirubin 0.50 mg/dL (0.1-1.2) 04/23/22 04:23 AST 26 units/L (5-40) 04/23/22 04:23 ALT 17 units/L (7-56) 04/23/22 04:23 Alkaline Phosphatase 73 units/L (35-129) 04/23/22 04:23 Ammonia 16.0 umol/L (25-60) L 04/22/22 02:01 Total Creatine Kinase 184 units/L (30-135) H 04/22/22 02:01 Troponin T < 0.010 ng/mL (0.00-0.029) 04/22/22 02:01 Total Protein 7.8 g/dL (6.3-8.2) 04/23/22 04:23 Albumin 3.3 g/dL (3.9-5) L 04/23/22 04:23 Albumin/Globulin Ratio 0.7 % 04/23/22 04:23 Urine Color Jocelyne (Yellow) 04/22/22 03:31 Urine Turbidity Cloudy (Clear) 04/22/22 03:31 Urine pH 5.0 (5.0-7.0) 04/22/22 03:31 Ur Specific [place] 1.023 (1.003-1.030) 04/22/22 03:31 Urine Protein 30 mg/dl mg/dL (Negative) 04/22/22 03:31 Urine Glucose (UA) Neg mg/dL (Negative) 04/22/22 03:31 Urine Ketones Neg mg/dL (Negative) 04/22/22 03:31 Urine Blood Neg (Negative) 04/22/22 03:31 Urine Nitrite Neg (Negative) 04/22/22 03:31 Urine Bilirubin Neg (Negative) 04/22/22 03:31 Urine Urobilinogen < 2.0 mg/dL (<2.0) 04/22/22 03:31 Ur Leukocyte Esterase Neg (Negative) 04/22/22 03:31 Urine WBC (Auto) 7.0 /HPF (0.0-6.0) H 04/22/22 03:31 Urine RBC (Auto) 11.0 /HPF (0.0-6.0) 04/22/22 03:31 U Epithel Cells (Auto) 16.0 /HPF (0-13.0) H 04/22/22 03:31 Urine Bacteria (Auto) 1+ /HPF (Negative) 04/22/22 03:31 Hyaline Casts 9 /LPF 04/22/22 03:31 Urine Mucus Few /HPF 04/22/22 03:31 Urine Creatinine 141.6 mg/dL (0.1-20.0) H 04/22/22 10:56 Urine Sodium 99 mmol/L 04/22/22 10:56 Urine Total Protein 37 mg/dL (5-11.8) H 04/22/22 10:56 Microbiology: Microbiology 04/22/22 02:01 Peripheral/Venous Blood Culture - Preliminary Culture in Progress 04/22/22 01:53 Peripheral/Venous Blood Culture - Preliminary Culture in Progress 04/22/22 06:11 Stool Stool Occult Blood (ADDISON) - Final Bashir/IV: Voiding Method Indwelling Catheter Active Medications - Current Medications Current Medications: Generic Name Dose Route Start Last Admin Trade Name Freq PRN Reason Stop Dose Admin Acetaminophen 650 mg 04/22/22 04:21 Acetaminophen 325 Mg Tab PO Q4H PRN Pain MILD(1-3)/Fever >100.5/DOWNS Apixaban 2.5 mg 04/23/22 10:00 Apixaban 2.5 Mg Tab PO BID TERRI Famotidine 20 mg 04/23/22 10:00 Famotidine 20 Mg Tab PO DAILY TERRI Folic Acid 1 mg 04/22/22 10:00 04/22/22 13:15 Folic Acid 1 Mg Tab PO 1 mg QDAY TERRI Administration Sodium Chloride 1,000 mls @ 125 mls/hr 04/22/22 04:30 04/22/22 08:00 Nacl 0.9% 1000 Ml IV 125 mls/hr DIRECT TERRI Administration Ceftriaxone Sodium 2 gm in 100 mls @ 200 mls/hr 04/22/22 05:00 04/23/22 05:54 Rocephin/Ns 2 Gm/100 Ml IV Infused Q24H TERRI Infusion Protocol Morphine Sulfate 4 mg 04/22/22 04:21 Morphine 4 Mg/1 Ml Inj IV Q4H PRN Pain , Severe (7-10) Morphine Sulfate 2 mg 04/22/22 04:21 Morphine 2 Mg/1 Ml Inj IV Q4H PRN Pain, Moderate (4-6) Ondansetron HCl 4 mg 04/22/22 04:21 Ondansetron 4 Mg/2 Ml Inj IV Q8H PRN Nausea And Vomiting Pravastatin Sodium 80 mg 04/22/22 22:00 04/22/22 21:07 Pravastatin 80 Mg Tab PO 80 mg QHS TERRI Administration Sodium Chloride 10 ml 04/22/22 10:00 04/22/22 21:07 Sodium Chloride 0.9% 10 Ml Flush Syringe IV 10 ml BID TERRI Administration Sodium Chloride 10 ml 04/22/22 04:21 Sodium Chloride 0.9% 10 Ml Flush Syringe IV PRN PRN LINE FLUSH Nutrition/Malnutrition Assess - Dietary Evaluation Nutrition/Malnutrition Findings: Nutrition Notes Start: 04/22/22 11:36 Freq: Status: Active Protocol: Document 04/22/22 11:36 [email or web address] (Rec: 04/22/22 11:44 UTALL [id number]) Nutrition Notes Need for Assessment generated from: MD Order,auto 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 Pt extubated this am. PMHx includes dementia and asthma. Per pt records, pt less active and alert with decreased PO intake over past several days. Pt also screened for malnutrition risk . Burn Absent Trauma Absent Skin Integrity/Comment No skin breakdown reported Minimum of two criteria No Energy Intake (non-severe) <75% Estimated Energy Requirement >7 days #1 Nutrition Diagnosis Inadequate oral intake Etiology mech ventilation s/p recent extubation As Evidenced by Signs and Symptoms pt NPO Is patient on ventilator? No Is Patient Ambulatory and/or Out of Bed No REE-([facility]-confined to bed) 2002.472 Kcal/Kg value to use for calculation 13 Approximate Energy Requirements Using 1485 kcal/Kg Calculation Used for Recommendations Kcal/kg Additional Notes Pro needs 0.8-1.2g/kg adjBW: 70-105g/day Fluid needs 1ml/kcal Nutrition Intervention Change Diet Order: Diet advancement when medically feasible Goal #1 Advance diet to meet nutrient needs Anticipated Discharge Needs: None identified at this time Follow-Up By: 04/24/22 Additional Comments F/U: diet advancement <[place] - Last Filed: 04/24/22 07:29> Assessment and Plan Assessment and plan: I saw and evaluated the patient. I agree with the findings and the plan of care as documented in the Nurse Practitioner's~note, with the following corrections and additions. Hospitalist Physical - Constitutional Vitals: Temp Pulse Resp BP Pulse Ox 98.4 F 97 H 18 138/75 97 04/23/22 21:45 04/23/22 21:45 04/23/22 21:45 04/23/22 21:45 04/23/22 22:24 HEART Score - HEART Score Troponin: Troponin T < 0.010 ng/mL (0.00-0.029) 04/22/22 02:01 Results - Labs CBC & Chem 7: 04/24/22 01:07 04/24/22 01:07 Labs: Laboratory Last Values WBC 9.0 K/mm3 (4.5-11.0) 04/24/22 01:07 RBC 3.94 M/mm3 (3.65-5.03) 04/24/22 01:07 Hgb 12.6 gm/dl (10.1-14.3) 04/24/22 01:07 Hct 38.1 % (30.3-42.9) 04/24/22 01:07 MCV 97 fl (79-97) 04/24/22 01:07 MCH 32 pg (28-32) 04/24/22 01:07 MCHC 33 % (30-34) 04/24/22 01:07 RDW 13.7 % (13.2-15.2) 04/24/22 01:07 Plt Count 186 K/mm3 (140-440) 04/24/22 01:07 Lymph % (Auto) 45.8 % (13.4-35.0) H 04/24/22 01:07 [place] % (Auto) 5.8 % (0.0-7.3) 04/24/22 01:07 Eos % (Auto) 1.1 % (0.0-4.3) 04/24/22 01:07 Baso % (Auto) 0.3 % (0.0-1.8) 04/24/22 01:07 Lymph # (Auto) 4.1 K/mm3 (1.2-5.4) 04/24/22 01:07 [place] # (Auto) 0.5 K/mm3 (0.0-0.8) 04/24/22 01:07 Eos # (Auto) 0.1 K/mm3 (0.0-0.4) 04/24/22 01:07 Baso # (Auto) 0.0 K/mm3 (0.0-0.1) 04/24/22 01:07 Seg Neutrophils % 47.0 % (40.0-70.0) 04/24/22 01:07 Seg Neutrophils # 4.2 K/mm3 (1.8-7.7) 04/24/22 01:07 ABG pH 7.303 pH Units (7.350-7.450) L 04/22/22 01:50 ABG pCO2 36.0 mm Hg 04/22/22 01:50 ABG pO2 141.5 mm Hg (80.0-90.0) H 04/22/22 01:50 ABG HCO3 17.5 mmol/L (20.0-26.0) L 04/22/22 01:50 ABG O2 Saturation 98.6 % (95.0-99.0) 04/22/22 01:50 ABG O2 Content 19.5 (0.0-44) 04/22/22 01:50 ABG Base Excess -8.1 mmol/L (-2.0-3.0) L 04/22/22 01:50 ABG Hemoglobin 14.2 gm/dl (12.0-16.0) 04/22/22 01:50 ABG Carboxyhemoglobin 1.4 % (0.0-5.0) 04/22/22 01:50 ABG Methemoglobin 0.5 % (0.0-1.5) 04/22/22 01:50 Oxyhemoglobin 96.8 % (95.0-99.0) 04/22/22 01:50 FiO2 60 % 04/22/22 01:50 Sodium 136 mmol/L (137-145) L 04/24/22 01:07 Potassium 3.8 mmol/L (3.6-5.0) 04/24/22 01:07 Chloride 103.1 mmol/L (98-107) 04/24/22 01:07 Carbon Dioxide 22 mmol/L (22-30) 04/24/22 01:07 Anion Gap 15 mmol/L 04/24/22 01:07 BUN 26 mg/dL (7-17) H 04/24/22 01:07 Creatinine 2.0 mg/dL (0.6-1.2) H 04/24/22 01:07 Estimated GFR 29 ml/min 04/24/22 01:07 BUN/Creatinine Ratio 13 % 04/24/22 01:07 Glucose 87 mg/dL (65-100) 04/24/22 01:07 POC Glucose 71 mg/dL (70-105) 04/22/22 23:32 Lactic Acid 1.10 mmol/L (0.7-2.0) 04/22/22 04:53 Calcium 9.3 mg/dL (8.4-10.2) 04/24/22 01:07 Total Bilirubin 0.50 mg/dL (0.1-1.2) 04/23/22 04:23 AST 26 units/L (5-40) 04/23/22 04:23 ALT 17 units/L (7-56) 04/23/22 04:23 Alkaline Phosphatase 73 units/L (35-129) 04/23/22 04:23 Ammonia 16.0 umol/L (25-60) L 04/22/22 02:01 Total Creatine Kinase 184 units/L (30-135) H 04/22/22 02:01 Troponin T < 0.010 ng/mL (0.00-0.029) 04/22/22 02:01 Total Protein 7.8 g/dL (6.3-8.2) 04/23/22 04:23 Albumin 3.3 g/dL (3.9-5) L 04/23/22 04:23 Albumin/Globulin Ratio 0.7 % 04/23/22 04:23 Urine Color Jocelyne (Yellow) 04/22/22 03:31 Urine Turbidity Cloudy (Clear) 04/22/22 03:31 Urine pH 5.0 (5.0-7.0) 04/22/22 03:31 Ur Specific [place] 1.023 (1.003-1.030) 04/22/22 03:31 Urine Protein 30 mg/dl mg/dL (Negative) 04/22/22 03:31 Urine Glucose (UA) Neg mg/dL (Negative) 04/22/22 03:31 Urine Ketones Neg mg/dL (Negative) 04/22/22 03:31 Urine Blood Neg (Negative) 04/22/22 03:31 Urine Nitrite Neg (Negative) 04/22/22 03:31 Urine Bilirubin Neg (Negative) 04/22/22 03:31 Urine Urobilinogen < 2.0 mg/dL (<2.0) 04/22/22 03:31 Ur Leukocyte Esterase Neg (Negative) 04/22/22 03:31 Urine WBC (Auto) 7.0 /HPF (0.0-6.0) H 04/22/22 03:31 Urine RBC (Auto) 11.0 /HPF (0.0-6.0) 04/22/22 03:31 U Epithel Cells (Auto) 16.0 /HPF (0-13.0) H 04/22/22 03:31 Urine Bacteria (Auto) 1+ /HPF (Negative) 04/22/22 03:31 Hyaline Casts 9 /LPF 04/22/22 03:31 Urine Mucus Few /HPF 04/22/22 03:31 Urine Creatinine 141.6 mg/dL (0.1-20.0) H 04/22/22 10:56 Urine Sodium 99 mmol/L 04/22/22 10:56 Urine Total Protein 37 mg/dL (5-11.8) H 04/22/22 10:56 Microbiology: Microbiology 04/22/22 02:20 Tracheal Aspirate Sputum Culture - Preliminary 04/22/22 02:01 Peripheral/Venous Blood Culture - Preliminary NO GROWTH AFTER 24 HOURS 04/22/22 01:53 Peripheral/Venous Blood Culture - Preliminary NO GROWTH AFTER 24 HOURS Bashir/IV: Voiding Method Indwelling Catheter Active Medications - Current Medications Current Medications: Generic Name Dose Route Start Last Admin Trade Name Freq PRN Reason Stop Dose Admin Acetaminophen 650 mg 04/22/22 04:21 04/23/22 14:31 Acetaminophen 325 Mg Tab PO 650 mg Q4H PRN Administration Pain MILD(1-3)/Fever >100.5/DOWNS Apixaban 2.5 mg 04/23/22 10:00 04/23/22 21:47 Apixaban 2.5 Mg Tab PO 2.5 mg BID TERRI Administration Famotidine 20 mg 04/23/22 10:00 04/23/22 09:05 Famotidine 20 Mg Tab PO 20 mg DAILY TERRI Administration Folic Acid 1 mg 04/22/22 10:00 04/23/22 09:05 Folic Acid 1 Mg Tab PO 1 mg QDAY TERRI Administration Ceftriaxone Sodium 2 gm in 100 mls @ 200 mls/hr 04/22/22 05:00 04/24/22 05:15 Rocephin/Ns 2 Gm/100 Ml IV 200 mls/hr Q24H TERRI Administration Protocol Morphine Sulfate 2 mg 04/22/22 04:21 Morphine 2 Mg/1 Ml Inj IV Q4H PRN Pain, Moderate (4-6) Ondansetron HCl 4 mg 04/22/22 04:21 Ondansetron 4 Mg/2 Ml Inj IV Q8H PRN Nausea And Vomiting Pravastatin Sodium 80 mg 04/22/22 22:00 04/23/22 21:47 Pravastatin 80 Mg Tab PO 80 mg QHS TERRI Administration Sodium Chloride 10 ml 04/22/22 10:00 04/23/22 21:47 Sodium Chloride 0.9% 10 Ml Flush Syringe IV 10 ml BID TERRI Administration Sodium Chloride 10 ml 04/22/22 04:21 Sodium Chloride 0.9% 10 Ml Flush Syringe IV PRN PRN LINE FLUSH Nutrition/Malnutrition Assess - Dietary Evaluation Nutrition/Malnutrition Findings: Nutrition Notes Start: 04/22/22 11:36 Freq: Status: Active Protocol: Document 04/22/22 11:36 [facility] (Rec: 04/22/22 11:44 [facility] [id number]) Nutrition Notes Need for Assessment generated from: MD Order,auto 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 Pt extubated this am. PMHx includes dementia and asthma. Per pt records, pt less active and alert with decreased PO intake over past several days. Pt also screened for malnutrition risk . Burn Absent Trauma Absent Skin Integrity/Comment No skin breakdown reported Minimum of two criteria No Energy Intake (non-severe) <75% Estimated Energy Requirement >7 days #1 Nutrition Diagnosis Inadequate oral intake [facility] As Evidenced by Signs and Symptoms pt NPO Is patient on ventilator? No Is Patient Ambulatory and/or Out of Bed No REE-([facility]-confined to bed) 2002.472 Kcal/Kg value to use for calculation 13 Approximate Energy Requirements Using 1485 kcal/Kg Calculation Used for Recommendations Kcal/kg Additional Notes Pro needs 0.8-1.2g/kg adjBW: 70-105g/day Fluid needs 1ml/kcal Nutrition Intervention Change Diet Order: Diet advancement when medically feasible Goal #1 Advance diet to meet nutrient needs Anticipated Discharge Needs: None identified at this time Follow-Up By: 04/24/22 Additional Comments F/U: diet advancement
[2022-04-23] MEDS: FAMOTIDINE 20 MG TAB PO SCH (09:05)
[2022-04-23] MEDS: FOLIC ACID 1 MG TAB PO SCH (09:05)
[2022-04-23] MEDS: APIXABAN 2.5 MG TAB PO SCH ×2 (09:05→21:47)
--- NOTE | 2022-04-23 10:24 | Progress Note ---
Assessment and Plan 76 y/o female with acute respiratory failure secondary to altered mental state possibly from infectious source in urine. 04/23/22: Weaned to room air. Transfer to floor. 1. Continue Rocephin 2. If urine culture was not sent, will order 3. Extubate now given improvement in mental state 4. Per chart, patient has COPD but no medications for COPD listed, will follow up once extubated 5. Saw renal on last hospital admit, will see if consult is needed once extubated 6. Once extubated and monitored for a few hours, can likely be transitioned to the floor, maybe with remote tele. CCT 31 minutes. Subjective Date of service: 04/23/22 Interval history: no acute events. Successful extubation. Awake and alert. Watching TV. Objective Vital Signs - 12hr 04/22/22 04/22/22 04/22/22 23:00 23:33 23:47 Temperature 99.2 F Pulse Rate 90 97 H Pulse Rate [ From Monitor] Respiratory 15 11 L Rate Blood Pressure 118/66 118/66 O2 Sat by Pulse 98 97 Oximetry 04/22/22 04/23/22 04/23/22 23:48 00:00 01:00 Temperature Pulse Rate 97 H 95 H Pulse Rate [ From Monitor] Respiratory 17 13 Rate Blood Pressure 107/56 103/53 O2 Sat by Pulse 97 96 98 Oximetry 04/23/22 04/23/22 04/23/22 02:00 03:00 04:00 Temperature 99.8 F H Pulse Rate 94 H 95 H 102 H Pulse Rate [ From Monitor] Respiratory 15 14 15 Rate Blood Pressure 98/51 98/51 116/62 O2 Sat by Pulse 99 99 98 Oximetry 04/23/22 04/23/22 04/23/22 05:00 06:00 07:00 Temperature Pulse Rate 100 H 96 H 100 H Pulse Rate [ From Monitor] Respiratory 16 13 15 Rate Blood Pressure 118/65 124/65 106/67 O2 Sat by Pulse 98 98 98 Oximetry 04/23/22 04/23/22 04/23/22 08:00 09:00 09:03 Temperature 97.9 F Pulse Rate 94 H 95 H Pulse Rate [ 94 H From Monitor] Respiratory 15 17 Rate Blood Pressure 117/64 110/65 O2 Sat by Pulse 99 93 99 Oximetry Constitutional: no acute distress, alert Eyes: non-icteric ENT: other (orally intubated) Neck: supple Effort: normal Ascultation: Bilateral: clear CBC and BMP: 04/23/22 04:23 04/23/22 04:23 ABG, PT/INR, D-dimer: ABG ABG pH 7.303 pH Units (7.350-7.450) L 04/22/22 01:50 ABG pCO2 36.0 mm Hg 04/22/22 01:50 ABG pO2 141.5 mm Hg (80.0-90.0) H 04/22/22 01:50 ABG O2 Saturation 98.6 % (95.0-99.0) 04/22/22 01:50 Abnormal lab findings: Abnormal Labs 04/22/22 04/22/22 04/22/22 01:50 02:01 02:01 Lymph % (Auto) 51.6 H ABG pH 7.303 L ABG pO2 141.5 H ABG HCO3 17.5 L ABG Base Excess -8.1 L Sodium 131 L Potassium 5.8 H Chloride Carbon Dioxide 20 L BUN 40 H Creatinine 3.1 H Glucose 172 H Lactic Acid Ammonia Total Creatine Kinase 184 H Total Protein 9.5 H Albumin Urine WBC (Auto) U Epithel Cells (Auto) Urine Creatinine Urine Total Protein 04/22/22 04/22/22 04/22/22 02:01 02:01 03:31 Lymph % (Auto) ABG pH ABG pO2 ABG HCO3 ABG Base Excess Sodium Potassium Chloride Carbon Dioxide BUN Creatinine Glucose Lactic Acid 2.20 H* Ammonia 16.0 L Total Creatine Kinase Total Protein Albumin Urine WBC (Auto) 7.0 H U Epithel Cells (Auto) 16.0 H Urine Creatinine Urine Total Protein 04/22/22 04/22/22 04/23/22 05:59 10:56 04:23 Lymph % (Auto) ABG pH ABG pO2 ABG HCO3 ABG Base Excess Sodium 135 L Potassium Chloride 107.1 H 108.2 H Carbon Dioxide 18 L 19 L BUN 39 H 32 H Creatinine 3.0 H 2.2 H Glucose 107 H Lactic Acid Ammonia Total Creatine Kinase Total Protein Albumin 3.3 L Urine WBC (Auto) U Epithel Cells (Auto) Urine Creatinine 141.6 H Urine Total Protein 37 H
--- NOTE | 2022-04-23 10:45 | Progress Note ---
Assessment and Plan - Patient Problems (1) Lactic acidosis Current Visit: Yes Status: Acute Plan to address problem: Lactic acidosis secondary to hypoperfusion with low blood pressure on presentation. Blood pressure improved with volume expansion. Lactic acid has improved back to normal. (2) Acute metabolic encephalopathy Current Visit: Yes Status: Acute Plan to address problem: Multifactorial etiology. Improving with treatment. (3) Acute respiratory failure Current Visit: Yes Status: Acute Plan to address problem: Patient being seen by pulmonary. S/p extubation on appears stable. Transferred to the floor later today (4) Hyperkalemia Current Visit: Yes Status: Acute Plan to address problem: Secondary to decreased distal delivery of sodium with volume depletion and also transcellular shift with acidosis. Potassium being treated aggressively medica lly and is improved to 4.7. Continue to follow-up potassium (5) NAZ (acute kidney injury) Current Visit: No Status: Acute Plan to address problem: Patient may well have baseline chronic kidney disease with superimposed acute kidney injury prerenal azotemia versus acute tubular necrosis secondary to hyp otension. Kidney function is improving. Follow-up electrolytes and renal function (6) Dementia Current Visit: No Status: Acute Plan to address problem: Baseline dementia. We will need records to ascertain baseline Subjective Date of service: 04/23/22 Principal diagnosis: Acute kidney injury Interval history: Patient seen lying in bed. She is extubated. She is awake and alert. She denies any complaints. No chest pain, shortness of breath, nausea or vomiting. Objective - Exam Narrative Exam: Elderly -Stateless female lying in bed in no acute distress HEENT: NCAT, Neck: Supple, no venous distention CVS: S1S2 RRR with no murmur, rub or gallop Chest: Diminished breath sounds bilaterally Abdomen: Obese, soft, nontender, no organomegaly, bowel sounds are present Extremities: No edema Genitourinary deferred Skin warm and dry Neuro: Awake, alert, following simple commands - Vital Signs Vital signs: Vital Signs - 12hr 04/22/22 04/22/22 04/22/22 23:00 23:33 23:47 Temperature 99.2 F Pulse Rate 90 97 H Pulse Rate [ From Monitor] Respiratory 15 11 L Rate Blood Pressure 118/66 118/66 O2 Sat by Pulse 98 97 Oximetry 04/22/22 04/23/22 04/23/22 23:48 00:00 01:00 Temperature Pulse Rate 97 H 95 H Pulse Rate [ From Monitor] Respiratory 17 13 Rate Blood Pressure 107/56 103/53 O2 Sat by Pulse 97 96 98 Oximetry 04/23/22 04/23/22 04/23/22 02:00 03:00 04:00 Temperature 99.8 F H Pulse Rate 94 H 95 H 102 H Pulse Rate [ From Monitor] Respiratory 15 14 15 Rate Blood Pressure 98/51 98/51 116/62 O2 Sat by Pulse 99 99 98 Oximetry 04/23/22 04/23/22 04/23/22 05:00 06:00 07:00 Temperature Pulse Rate 100 H 96 H 100 H Pulse Rate [ From Monitor] Respiratory 16 13 15 Rate Blood Pressure 118/65 124/65 106/67 O2 Sat by Pulse 98 98 98 Oximetry 04/23/22 04/23/22 04/23/22 08:00 09:00 09:03 Temperature 97.9 F Pulse Rate 94 H 95 H Pulse Rate [ 94 H From Monitor] Respiratory 15 17 Rate Blood Pressure 117/64 110/65 O2 Sat by Pulse 99 93 99 Oximetry - Lab 04/23/22 04:23 04/23/22 04:23 Most recent lab results ABG pH 7.303 pH Units (7.350-7.450) L 04/22/22 01:50 ABG pCO2 36.0 mm Hg 04/22/22 01:50 ABG pO2 141.5 mm Hg (80.0-90.0) H 04/22/22 01:50 ABG HCO3 17.5 mmol/L (20.0-26.0) L 04/22/22 01:50 ABG O2 Saturation 98.6 % (95.0-99.0) 04/22/22 01:50 Calcium 8.9 mg/dL (8.4-10.2) 04/23/22 04:23 Urine Creatinine 141.6 mg/dL (0.1-20.0) H 04/22/22 10:56 Urine Sodium 99 mmol/L 04/22/22 10:56 Urine Total Protein 37 mg/dL (5-11.8) H 04/22/22 10:56 Medications & Allergies - Medications Allergies/Adverse Reactions: Allergies Sulfa (Sulfonamide Antibiotics) Allergy (Verified 02/29/16 21:57) Nausea Home Medications: Home Medications Medication Instructions Recorded Confirmed Last Taken Type Allopurinol 1 tab PO BID 03/01/16 01/30/21 Unknown History Cholecalciferol Vit D3 [Vitamin D3 1,000 unit PO QDAY 03/01/16 01/30/21 Unknown History 1,000 UNIT TAB] Folic Acid [Folvite] 1 mg PO QDAY 03/01/16 01/30/21 Unknown History Simvastatin 1 tab PO QHS 03/01/16 01/30/21 Unknown History Albuterol Sulfate [Ventolin HFA] 2 puff IH Q4HR PRN #1 [id number] 03/02/16 Unknown Rx Apixaban [Eliquis] 5 mg PO QDAY 01/30/21 01/30/21 Unknown History Pregabalin 200 mg PO QHS 01/30/21 01/30/21 Unknown History Active Medications: Generic Name Dose Route Start Last Admin Trade Name Freq PRN Reason Stop Dose Admin Acetaminophen 650 mg 04/22/22 04:21 Acetaminophen 325 Mg Tab PO Q4H PRN Pain MILD(1-3)/Fever >100.5/DOWNS Apixaban 2.5 mg 04/23/22 10:00 04/23/22 09:05 Apixaban 2.5 Mg Tab PO 2.5 mg BID TERRI Administration Famotidine 20 mg 04/23/22 10:00 04/23/22 09:05 Famotidine 20 Mg Tab PO 20 mg DAILY TERRI Administration Folic Acid 1 mg 04/22/22 10:00 04/23/22 09:05 Folic Acid 1 Mg Tab PO 1 mg QDAY TERRI Administration Sodium Chloride 1,000 mls @ 125 mls/hr 04/22/22 04:30 04/22/22 08:00 Nacl 0.9% 1000 Ml IV 125 mls/hr DIRECT TERRI Administration Ceftriaxone Sodium 2 gm in 100 mls @ 200 mls/hr 04/22/22 05:00 04/23/22 05:54 Rocephin/Ns 2 Gm/100 Ml IV Infused Q24H TERRI Infusion Protocol Morphine Sulfate 4 mg 04/22/22 04:21 Morphine 4 Mg/1 Ml Inj IV Q4H PRN Pain , Severe (7-10) Morphine Sulfate 2 mg 04/22/22 04:21 Morphine 2 Mg/1 Ml Inj IV Q4H PRN Pain, Moderate (4-6) Ondansetron HCl 4 mg 04/22/22 04:21 Ondansetron 4 Mg/2 Ml Inj IV Q8H PRN Nausea And Vomiting Pravastatin Sodium 80 mg 04/22/22 22:00 04/22/22 21:07 Pravastatin 80 Mg Tab PO 80 mg QHS TERRI Administration Sodium Chloride 10 ml 04/22/22 10:00 04/23/22 09:06 Sodium Chloride 0.9% 10 Ml Flush Syringe IV 10 ml BID TERRI Administration Sodium Chloride 10 ml 04/22/22 04:21 Sodium Chloride 0.9% 10 Ml Flush Syringe IV PRN PRN LINE FLUSH
[2022-04-23] MEDS: PRAVASTATIN 80 MG TAB PO SCH (21:47)
[2022-04-24] MEDS ORDERED: ZOLPIDEM 5 MG TAB PO ONE (00:34)
[2022-04-24 01:38] LABS: Basophils % (Auto) 0.3 % (0.0-1.8); Eosinophils # (Auto) 0.1 K/mm3 (0.0-0.4); Eosinophils % (Auto) 1.1 % (0.0-4.3); Hematocrit 38.1 % (30.3-42.9); Hemoglobin 12.6 gm/dl (10.1-14.3); Lymphocytes # (Auto) 4.1 K/mm3 (1.2-5.4); Lymphocytes % (Auto) 45.8 % (13.4-35.0); Mean Corpuscular HGB Conc 33 % (30-34); Mean Corpuscular Volume 97 fl (79-97); Monocytes # (Auto) 0.5 K/mm3 (0.0-0.8); Monocytes % (Auto) 5.8 % (0.0-7.3); Platelet Count 186 K/mm3 (140-440); Red Blood Count 3.94 M/mm3 (3.65-5.03); Red Cell Distribution Width 13.7 % (13.2-15.2)
[2022-04-24 01:42] LABS: Calcium 9.3 mg/dL (8.4-10.2)
[2022-04-24] MEDS: cefTRIAXone/NS 2 GM/100 ML 2 GM/100 ML BAG IV SCH (05:15)
[2022-04-24] MEDS: FOLIC ACID 1 MG TAB PO SCH (09:23)
[2022-04-24] MEDS: APIXABAN 2.5 MG TAB PO SCH (09:23)
[2022-04-24] MEDS: FAMOTIDINE 20 MG TAB PO SCH (09:24)
--- NOTE | 2022-04-24 09:51 | Discharge Summary ---
Providers - Providers Date of Admission: 04/22/22 04:21 Attending physician: BRANNON DUBON MD 04/22/22 04:24 Consult to Dietitian/Nutrition [CONS] Routine Physician Instructions: Reason For Exam: Reason for Consult: Diet education 04/22/22 04:33 Consult to Physician [CONS] Routine Comment: Dr. Raza spoke with Dr. Correia @ [id number] Consulting Provider: CARLOTA CORREIA Physician Instructions: Reason For Exam: rio 04/24/22 08:52 Physical Therapy Evaluation and Treat [CONS] Stat Comment: Eval and Treat Reason For Exam: Physical Therapy Primary care physician: AIR POLLUTION CONTROL ENGINEER Hospitalization Reason for admission: AMS Condition: Stable Hospital course: 76-year-old female brought in by EMS from home for altered mental status. Per family patient has been less active and alert over the past several days with very little appetite. EMS reports patient was obtunded had agonal respirations and thready pulse on scene and began [id number] ventilation. Narcan was given with no response. As per patient took some pain medication at 10:30 PM In the emergency room patient is found to have potassium of 5.8, BUN 40 creati nine 3.1 and lactic acid 2.2, ABG shows 7.303, PCO2 36.0, PO2 141.5 bicarb 17.5 O2 sat [address] head shows no acute intracranial abnormality. Chest x-ray shows no evidence of acute cardiopulmonary disease. So going to admit the patient to the ICU consult critical care as well as nephrology for evaluation Hospital Course: 04/21: Suspect encephalopathy 2/2 medication. Now following commands on vent. D/w fiber designer Dr. Casillas. Plan for CPAP trial and potential extubation today. Patient can likely be transferred to floor this evening or tomorrow a.m. if she remains stable. 04/23/22-patient seen at bedside. Alert and verbal. Pt is S/P extubation and on room air. 02 sat 98 to 99%. patient denies any distress. patient will be transferred to tele floor.-transfer patient to the floor-patient is stable. 04/24: Patient seen and examined, continue supportive care. Her is at the bedside and states that the patient has underlying Dementia. They are encouraged to follow with PCP and nephrology and also remain hydrated. Assessment and Plan: #Acute respiratory failure with hypoxia #Chronic obstructive pulmonary disease Intubated for airway protection due to encephalopathy -ABG 7.3/36/141.5/17.5 on FiO2 60% -DuoNeb treatments Chest x-ray demonstrates endotracheal tube and esophogastric tube with appropriate placement. Interval increase in nodular airspace opacity. -History of COPD per charting however no medications noted. Will need to clarify if patient uses any GOLD guideline maintenance therapy -Inside Sales Agent consulted, recommends possible extubation today. Patient placed on CPAP trial currently off sedation. #Acute metabolic encephalopathy #Dementia #Urinary tract infection -Encephalopathy likely multifactorial medication induced (takes pregabalin) in the setting of urinary tract infection and chronic dementia. -Patient did admit to polyuria but denied any dysuria. -Rocephin IV, recommend 3 to 5 days total therapy. Patient does not appear septic -Urine culture pending -CT brain no acute intracranial abnormality -Awake following Commands on encounter. -Continue to hold any sedating medications at this time. #Acute kidney injury on chronic kidney disease due to vasomotor nephropathy #Hyperkalemia -GFR 18, creatinine 3.1. Baseline appears to be 1.5 per chart review of January 2021 visit. K5.8, currently 4.7. Was given Kayexalate on admission Strict intake and output Nephrology consulted #Hypertension History of hypertension documented, do not see any antihypertensive medication -Normotensive thus far this admission, will hold antihypertensive therapy at this time. #Hyperlipidemia Resume simvastatin #Gouty arthritis -On pregabalin and allopurinol, please hold both medication #Morbid Obesity - BMI 39.4 - Counseled patient on the importance of weight loss, incorporating exercise, and dietary changes (lean meats, fresh fruits and vegetables, and water intake). Patient expresses understanding. - Time: +15 min Disposition: HOME / SELF CARE / HOMELESS Final Discharge Diagnosis (Prints w/discharge instructions): Acute respiratory failure with hypoxia Time spent for discharge: 35 MINS Core Measure Documentation - Palliative Care Palliative Care/ Comfort Measures: Not Applicable - Core Measures Any of the following diagnoses?: none Exam - Physical Exam Narrative exam: VITAL SIGNS: Reviewed. GENERAL: The patient appears normally developed, Vital signs as documented. Obese. Intubated HEAD: No signs of head trauma. EYES: Pupils are equal. Extraocular motions intact. EARS: Hearing grossly intact. MOUTH: Oropharynx is normal. NECK: No adenopathy, no JVD. CHEST: Diminished breath sounds bilaterally CARDIAC: Regular rate and rhythm. S1 and S2, without murmurs, gallops, or rubs. VASCULAR: No Edema. Peripheral pulses normal and equal in all extremities. ABDOMEN: Soft, non tender and non distended. No rebound or guarding, and no masses palpated. Bowel Sounds normal. MUSCULOSKELETAL: Good range of motion of all major joints. Extremities without clubbing, cyanosis or edema. NEUROLOGIC EXAM: Alert and awake, No focal sensory or strength deficits. PSYCHIATRIC: Mood normal. SKIN: detail exam as documented in skin assessment - Constitutional Vitals: Temp Pulse Resp BP Pulse Ox 98.4 F 95 H 20 138/75 95 04/23/22 21:45 04/24/22 09:30 04/24/22 09:30 04/23/22 21:45 04/24/22 09:30 Plan Activity: advance as tolerated, fall precautions Diet: low fat Special Instructions: record daily weights, record daily BP diary, physical education department chair apy, occupational therapy Follow up with: CHALO MCFARLANE JR, MD [Staff Physician] - 7 Days ELIEL PARKER MD [Staff Physician] - 7 Days Prescriptions: Pravastatin [Pravachol] 80 mg PO QHS #30 tablet Ciprofloxacin HCl 500 mg PO BID #6 tab Apixaban [Eliquis] 2.5 mg PO BID #30 tablet Folic Acid [Folvite] 1 mg PO QDAY #30 tablet Famotidine [Pepcid] 20 mg PO DAILY #30 tablet
--- NOTE | 2022-04-24 10:39 | Progress Note ---
Assessment and Plan - Patient Problems (1) Lactic acidosis Current Visit: Yes Status: Acute Plan to address problem: Lactic acidosis secondary to hypoperfusion with low blood pressure on presentation. Blood pressure improved with volume expansion. Lactic acid has improved back to normal. (2) Acute metabolic encephalopathy Current Visit: Yes Status: Acute Plan to address problem: Multifactorial etiology. Improving with treatment. (3) NAZ (acute kidney injury) Current Visit: No Status: Acute Plan to address problem: Patient may well have baseline chronic kidney disease with superimposed acute kidney injury prerenal azotemia versus acute tubular necrosis secondary to hypotension. Kidney function is improving. Follow-up electrolytes and renal function. Okay to discharge home from renal standpoint. Schedule follow-up in the office in 2 to 3 weeks. 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 Stressed importance of outpatient follow- up to the patient and her at the bedside. (5) Acute respiratory failure Current Visit: Yes Status: Acute Plan to address problem: Patient being seen by pulmonary. Remains stable (6) Hyperkalemia Current Visit: Yes Status: Acute Plan to address problem: Secondary to decreased distal delivery of sodium with volume depletion and also transcellular shift with acidosis. Potassium back to normal with aggressive medical management. Follow-up periodically (7) Dementia Current Visit: No Status: Acute Plan to address problem: Baseline dementia. Patient appears to be about her baseline Subjective Date of service: 04/24/22 Principal diagnosis: Acute kidney injury Interval history: Patient seen lying in bed. Her is at the bedside. She is awake and alert. She denies any complaints. No chest pain, shortness of breath, nausea or vomiting. She wants to go home Objective - Exam Narrative Exam: Elderly -Guyanese female lying in bed in no acute distress HEENT: NCAT, Neck: Supple, no venous distention CVS: S1S2 RRR with no murmur, rub or gallop Chest: Diminished breath sounds bilaterally Abdomen: Obese, soft, nontender, no organomegaly, bowel sounds are present Extremities: No edema Genitourinary deferred Skin warm and dry Neuro: Awake, alert, following simple commands - Vital Signs Vital signs: Vital Signs - 12hr 04/24/22 04/24/22 08:37 09:30 Pulse Rate [ 95 H From Monitor] Respiratory 20 Rate O2 Sat by Pulse 95 95 Oximetry - Lab 04/24/22 01:07 04/24/22 01:07 Most recent lab results ABG pH 7.303 pH Units (7.350-7.450) L 04/22/22 01:50 ABG pCO2 36.0 mm Hg 04/22/22 01:50 ABG pO2 141.5 mm Hg (80.0-90.0) H 04/22/22 01:50 ABG HCO3 17.5 mmol/L (20.0-26.0) L 04/22/22 01:50 ABG O2 Saturation 98.6 % (95.0-99.0) 04/22/22 01:50 Calcium 9.3 mg/dL (8.4-10.2) 04/24/22 01:07 Urine Creatinine 141.6 mg/dL (0.1-20.0) H 04/22/22 10:56 Urine Sodium 99 mmol/L 04/22/22 10:56 Urine Total Protein 37 mg/dL (5-11.8) H 04/22/22 10:56 Medications & Allergies - Medications Allergies/Adverse Reactions: Allergies Sulfa (Sulfonamide Antibiotics) Allergy (Verified 02/29/16 21:57) Nausea Home Medications: Home Medications Medication Instructions Recorded Confirmed Last Taken Type Pregabalin 200 mg PO QHS 01/30/21 04/23/22 Unknown History Citalopram [Celexa] 20 mg PO QDAY 04/23/22 04/23/22 Unknown History Donepezil HCl [Donepezil HCl Odt] 5 mg PO QDAY 04/23/22 04/23/22 Unknown History Donepezil HCl [Donepezil HCl Odt] 10 mg PO QDAY 04/23/22 04/23/22 Unknown History Losartan [Cozaar] 25 mg PO QDAY 04/23/22 04/23/22 Unknown History Memantine 10 mg PO BID 04/23/22 04/23/22 Unknown History Apixaban [Eliquis] 2.5 mg PO BID #30 tablet 04/24/22 Unknown Rx Ciprofloxacin HCl 500 mg PO BID #6 tab 04/24/22 Unknown Rx Famotidine [Pepcid] 20 mg PO DAILY #30 tablet 04/24/22 Unknown Rx Folic Acid [Folvite] 1 mg PO QDAY #30 tablet 04/24/22 Unknown Rx Pravastatin [Pravachol] 80 mg PO QHS #30 tablet 04/24/22 Unknown Rx Active Medications: Generic Name Dose Route Start Last Admin Trade Name Freq PRN Reason Stop Dose Admin Acetaminophen 650 mg 04/22/22 04:21 04/23/22 14:31 Acetaminophen 325 Mg Tab PO 650 mg Q4H PRN Administration Pain MILD(1-3)/Fever >100.5/DOWNS Apixaban 2.5 mg 04/23/22 10:00 04/24/22 09:23 Apixaban 2.5 Mg Tab PO 2.5 mg BID TERRI Administration Famotidine 20 mg 04/23/22 10:00 04/24/22 09:24 Famotidine 20 Mg Tab PO 20 mg DAILY TERRI Administration Folic Acid 1 mg 04/22/22 10:00 04/24/22 09:23 Folic Acid 1 Mg Tab PO 1 mg QDAY TERRI Administration Ceftriaxone Sodium 2 gm in 100 mls @ 200 mls/hr 04/22/22 05:00 04/24/22 05:15 Rocephin/Ns 2 Gm/100 Ml IV 200 mls/hr Q24H TERRI Administration Protocol Morphine Sulfate 2 mg 04/22/22 04:21 Morphine 2 Mg/1 Ml Inj IV Q4H PRN Pain, Moderate (4-6) Ondansetron HCl 4 mg 04/22/22 04:21 Ondansetron 4 Mg/2 Ml Inj IV Q8H PRN Nausea And Vomiting Pravastatin Sodium 80 mg 04/22/22 22:00 04/23/22 21:47 Pravastatin 80 Mg Tab PO 80 mg QHS TERRI Administration Sodium Chloride 10 ml 04/22/22 10:00 04/24/22 09:24 Sodium Chloride 0.9% 10 Ml Flush Syringe IV 10 ml BID TERRI Administration Sodium Chloride 10 ml 04/22/22 04:21 Sodium Chloride 0.9% 10 Ml Flush Syringe IV PRN PRN LINE FLUSH
[2022-04-24 12:41] VITALS: BP 117/78
== END 2022-04-24 14:35 | disposition home or self-care (01) | DRG 208 ==
LOC: ED 00:52 → CC1 04:21 → 3A 04-23 15:22
PROVIDERS: ADMIT Hospitalist; ATTEND Internal Medicine
PROC: 5A1935Z Respiratory Ventilation, Less than 24 Consecutive Hours (ICD-10-PCS; principal; 2022-04-22)
PROC: 0BH17EZ Insertion of Endotracheal Airway into Trachea, Via Natural or Artificial Opening (ICD-10-PCS; 2022-04-22)
PROC: 4A033R1 Measurement of Arterial Saturation, Peripheral, Percutaneous Approach (ICD-10-PCS; 2022-04-22)
DX: J96.01 Acute respiratory failure with hypoxia (principal); G93.41 Metabolic encephalopathy; N17.0 Acute kidney failure with tubular necrosis; E87.2 Acidosis; N39.0 Urinary tract infection, site not specified; E87.5 Hyperkalemia; I10 Essential (primary) hypertension; Z90.710 Acquired absence of both cervix and uterus; Z88.2 Allergy status to sulfonamides; F03.90 Unspecified dementia, unspecified severity, without behavioral disturbance, psychotic disturbance, mood disturbance, and anxiety; Z82.49 Family history of ischemic heart disease and other diseases of the circulatory system; E78.5 Hyperlipidemia, unspecified; E66.01 Morbid (severe) obesity due to excess calories; Z68.39 Body mass index [BMI] 39.0-39.9, adult
CPT/HCPCS: 36415; 70450; 71045; 76770; 80048; 80053; 81001; 82140; 82270; 82550; 82570; 82803; 82962; 84156; 84300; 84484; 85025; 87040; 87070; 87086; 87205; 93005; 94002; 94003; 94760; G0378; J3490; Q9967; J0330; J0610; J0696; J1815; J7030